=== PATIENT | female | born 1990 | race Caucasian/White ===

== ENCOUNTER 2020-02-04 15:27 | Outpatient (RCR) | payer OTHER, SELFPAY | END 2020-05-04 23:59 | disposition home or self-care (01) | LOC: ANHLAB 15:27 | PROVIDERS: PCP Internal Medicine; Visit Provider Obstetrics & Gynecology Gynecology | DX: O26.851 Spotting complicating pregnancy, first trimester (principal); Z3A.00 Weeks of gestation of pregnancy not specified | CPT/HCPCS: 36415; 84702; 85461 ==

== ENCOUNTER → 2020-02-07 14:04 | Outpatient (CLI) | payer OTHER, SELFPAY ==
--- NOTE | ~2020-02-07 | US_ITS ---
EXAMINATION: US OB transvaginal DATE: 02/07/2020 14:42 INDICATION: First trimester dating, spotting TECHNIQUE: Real-time pelvic transabdominal and transvaginal ultrasound was performed. COMPARISON: None. FINDINGS: The uterus measures 9.6 x 5.9 x 7.7 cm. There is an intrauterine gestational sac. A small subchorionic hemorrhage seen at the anterior/superior aspect of the gestational sac. A yolk sac is id entified. heart motion is identified measuring 177 beats per minute (bpm) by M-mode Doppler. Th e crown rump length measures 2.7 cm , which correlates with an estimated gestational age of 9 w eeks and 4 day(s) (+/-) 6 day(s). The right ovary measures 3.5 x 3.2 x 3.0 cm. The left ovary measures 2.3 x 1.6 x 2.3 cm. There is nor mal vascular flow in the ovaries. There is no free fluid in the pelvis. IMPRESSION: 1. Live intrauterine with an estimated gestational age of 9 weeks and 4 day(s) (+/-) 6 day( s) and an estimated delivery date of 09/07/2020. 2. Small subchronic hemorrhage. Reviewed, dictated and finalized at location A. IMPRESSION: 1. Live intrauterine with an estimated gestational age of 9 weeks and 4 day(s) (+/-) 6 day(s) and an estimated delivery date of 09/07/2020. 2. Small subchronic hemorrhage.
== END ==
PROVIDERS: PCP Internal Medicine; Visit Provider Obstetrics & Gynecology Gynecology
DX: O46.91 Antepartum hemorrhage, unspecified, first trimester (principal); Z3A.09 9 weeks gestation of pregnancy
CPT/HCPCS: 76817

== ENCOUNTER → 2020-02-21 12:40 | Outpatient (CLI) | payer OTHER, SELFPAY ==
--- NOTE | ~2020-02-21 | US_ITS ---
EXAMINATION: US OB limited DATE: 02/21/2020 13:04 INDICATION: Subchorionic hematoma TECHNIQUE: Real-time ultrasound of the pelvis was performed using transabdominal probe. The interpret ing radiologist was not present for the study. COMPARISON: 02/07/2020 FINDINGS: There is a single living fetus with heart rate of 170 beats per minute (bpm). No evident subcho rionic hematoma. IMPRESSION: 1. Single living fetus with heart rate of 70 bpm. 2. No evident subchorionic hematoma however sensitivity is lower with transabdominal than with prior transvaginal imaging. Reviewed, dictated and finalized at location A. IMPRESSION: 1. Single living fetus with heart rate of 70 bpm. 2. No evident subchorionic hematoma however sensitivity is lower with transabdo mare than with prior transvaginal imaging.
== END ==
PROVIDERS: Visit Provider Obstetrics & Gynecology Gynecology
DX: O36.8910 Maternal care for other specified fetal problems, first trimester, not applicable or unspecified (principal); Z3A.00 Weeks of gestation of pregnancy not specified
CPT/HCPCS: 76815

== ENCOUNTER 2020-03-09 07:58 | Outpatient (CLI) | payer OTHER, SELFPAY ==
[2020-03-09 08:12] LABS: Basophils Absolute Auto 0.03 K/mm3 (0.00-0.10); Basophils Percent Auto 0.3 % (0.0-1.0); Eosinophils Absolute Auto 0.07 K/mm3 (0.02-0.50); Eosinophils Percent Auto 0.7 % (1.0-6.0); Hematocrit 39.4 % (35.0-49.0); Hemoglobin 13.2 g/dL (12.0-15.0); Immature Granulocyte Absolute 0.04 K/mm3 (0.00-0.00); Immature Granulocyte Percent A 0.4 % (0.0-0.0); Lymphocytes Absolute Auto 1.61 K/mm3 (1.10-4.50); Mean Corpuscular HGB Conc 33.5 g/dL (32.0-36.0); Mean Corpuscular Hemoglobin 28.1 pg (27.0-31.0); Mean Platelet Volume 10.2 fl (9.2-11.8); Monocytes Absolute Auto 0.43 K/mm3 (0.10-0.90); Monocytes Percent Auto 4.6 % (2.0-11.0); Neutrophils Absolute Auto 7.3 K/mm3 (1.7-7.2); Platelet Count Result 227 K/mm3 (150-420); Red Blood Count 4.69 M/mm3 (4.20-5.40); Red Cell Distribution Width 12.3 % (11.6-14.4); White Blood Count 9.5 K/mm3 (4.8-10.8)
[2020-03-09 08:20] LABS: Hemoglobin A1C 5.9 % (<5.7)
[2020-03-09 09:09] LABS: HIV 1 P24 AG Negative (Negative); HIV 1/2 AB Negative (Negative)
[2020-03-13 16:49] LABS: RPR Screen Non-Reactive (Non-Reactive)
[2020-03-13 20:27] LABS: Vitamin D 25 Hydroxy 38 ng/mL (30-100)
[2020-03-14 08:08] LABS: Rubella IgG Antibody <0.90 Index (>=1.00)
[2020-03-14 17:17] LABS: Hepatitis B Surface Antigen Nonreactive (Nonreactive)
== END 2020-03-09 07:59 | disposition home or self-care (01) ==
LOC: CHSLAB 08:01
PROVIDERS: Visit Provider Obstetrics & Gynecology Gynecology
DX: Z36.9 Encounter for antenatal screening, unspecified (principal)
CPT/HCPCS: 36415; 82306; 83036; 85025; 86592; 86703; 86762; 86850; 86900; 86901

== ENCOUNTER 2020-03-29 11:12 | Outpatient (CLI) | payer OTHER, SELFPAY ==
[2020-03-29 11:22] LABS: Basophils Absolute Auto 0.02 K/mm3 (0.00-0.10); Basophils Percent Auto 0.1 % (0.0-1.0); Eosinophils Absolute Auto 0.03 K/mm3 (0.02-0.50); Eosinophils Percent Auto 0.2 % (1.0-6.0); Hematocrit 38.5 % (35.0-49.0); Hemoglobin 12.7 g/dL (12.0-15.0); Immature Granulocyte Absolute 0.06 K/mm3 (0.00-0.00); Immature Granulocyte Percent A 0.4 % (0.0-0.0); Lymphocytes Absolute Auto 1.58 K/mm3 (1.10-4.50); Lymphocytes Percent Auto 11.8 % (18.0-42.0); Mean Platelet Volume 10.7 fl (9.2-11.8); Monocytes Absolute Auto 0.37 K/mm3 (0.10-0.90); Monocytes Percent Auto 2.8 % (2.0-11.0); Neutrophils Absolute Auto 11.4 K/mm3 (1.7-7.2); Neutrophils Percent Auto 84.7 % (50.0-70.0); Platelet Count Result 240 K/mm3 (150-420); Red Blood Count 4.53 M/mm3 (4.20-5.40); Red Cell Distribution Width 12.4 % (11.6-14.4); White Blood Count 13.4 K/mm3 (4.8-10.8)
[2020-03-29 11:59] LABS: Alanine Aminotransferase 15 U/L (14-59); Albumin Level 2.9 g/dL (3.4-5.0); Aspartate Amino Transferase 13 U/L (15-37); Bilirubin Direct 0.1 mg/dL (0-0.2); Bilirubin,Total 0.3 mg/dL (0.00-1.00); Total Protein 6.7 g/dL (6.4-8.2)
[2020-03-29 12:00] LABS: Alkaline Phosphatase 87 U/L (46-116); Amylase 24 U/L (25-115); Lipase 69 U/L (73-393)
== END 2020-03-29 11:13 | disposition home or self-care (01) ==
LOC: CHSLAB 11:13
PROVIDERS: PCP Internal Medicine; Visit Provider Obstetrics & Gynecology Gynecology
DX: K91.5 Postcholecystectomy syndrome (principal)
CPT/HCPCS: 36415; 80076; 82150; 83690; 85025

== ENCOUNTER 2020-04-15 07:46 | Outpatient (CLI) | payer OTHER, SELFPAY ==
[2020-04-17 13:06] LABS: SARS-CoV-2 RNA PCR Negative
== END 2020-04-15 07:47 | disposition home or self-care (01) ==
LOC: CHSLAB 07:48
PROVIDERS: PCP Internal Medicine; Visit Provider Internal Medicine
DX: Z20.828 Contact with and (suspected) exposure to other viral communicable diseases (principal); Z02.1 Encounter for pre-employment examination
CPT/HCPCS: 87635; C9803; U0003

== ENCOUNTER 2020-05-25 12:18 | Outpatient (CLI) | payer OTHER, SELFPAY ==
[2020-05-25 12:39] VITALS: BP 118/53; PULSE 83
[2020-05-25 13:04] LABS: Basophils Percent Auto 0.3 % (0.2-1.2); Eosinophils Absolute Auto 0.1 K/mm3 (0-0.3); Eosinophils Percent Auto 0.4 % (0-4.4); Hematocrit 36.6 % (37.0-47.0); Hemoglobin 12.2 g/dL (12.0-15.0); Immature Granulocyte Absolute 0.09 K/mm3 (0.00-0.031); Immature Granulocyte Percent A 0.8 % (0-0.5); Lymphocytes Percent Auto 16.1 % (18.3-44.2); Mean Corpuscular HGB Conc 33.3 g/dl (32-36); Mean Corpuscular Hemoglobin 27.7 pg (26-34); Mean Corpuscular Volume 83.2 fl (80-100); Mean Platelet Volume 10.8 fl (7.4-10.4); Monocytes Absolute Auto 0.5 K/mm3 (0.1-0.6); Monocytes Percent Auto 4.1 % (2.6-8.5); Neutrophils Absolute Auto 9.3 K/mm3 (1.3-6.7); Neutrophils Percent Auto 78.3 % (45.5-73.1); Platelet Count Result 216 k/mm3 (150-375); Red Cell Distribution Width 13.5 % (11.5-14.5); White Blood Count 11.8 K/mm3 (4.5-10.0)
[2020-05-25 13:17] VITALS: BP 104/72; PULSE 93
[2020-05-25 13:23] LABS: Alanine Aminotransferase 10 U/L (4-35); Albumin Level 3.4 g/dL (3.5-5.1); Alkaline Phosphatase 100 U/L (38-126); Anion Gap 7 mmol/L (8-16); Aspartate Amino Transferase 15 U/L (14-36); Bilirubin,Total 0.2 mg/dL (0.2-1.3); Blood Urea Nitrogen 7 mg/dL (7-17); Calcium 9.1 mg/dL (8.4-10.2); Carbon Dioxide 26 mmol/L (22-30); Chloride 103 mmol/L (98-107); Estimated Glomerular Filt Rate > 60; Glucose 96 mg/dL (65-105); Sodium 136 mmol/L (137-145); Uric Acid 3.5 mg/dL (2.5-7.5)
[2020-05-25 13:45] LABS: Add Urine Microscopic? YES; Appearance Urine Cloudy (Clear); Bacteria Urine Trace /hpf; Bilirubin Urine Negative (Negative); Blood Urine Negative (Negative); Color Urine Yellow (Yellow); Glucose Urine UA Negative (Negative); Ketones Urine Negative (Negative); Leukocyte Esterase Ur 1+ LEU/UL (NEGATIVE); Mucus Urine Rare /lpf; Nitrate Urine Negative (Negative); Protein Urine Negative (Negative); RBC Urine 0-2 /hpf (0-2); Specific Grav Ur 1.024 (1.001-1.035); Squamous Epithelial Cell Urine Many /hpf (Few); Transitional Epi Cells Urine Rare /hpf (None Seen); Urobilinogen Urine Negative mg/dL (<2.0)
[2020-05-25 13:46] LABS: Creatinine Urine 113.9 mg/dL; Total Protein Urine Random 8 mg/dL
[2020-05-25 13:56] VITALS: BP 113/62; PULSE 87
== END 2020-05-25 14:10 | disposition home or self-care (01) ==
LOC: ANHOBOP 12:22 → ANHOBPP 12:23
PROVIDERS: PCP Internal Medicine; Visit Provider Obstetrics & Gynecology Gynecology
DX: O13.9 Gestational [pregnancy-induced] hypertension without significant proteinuria, unspecified trimester (principal); Z3A.00 Weeks of gestation of pregnancy not specified
CPT/HCPCS: 36415; 80053; 81001; 82570; 84156; 84550; 85025; 87086; 87088; 87147; 99199

== ENCOUNTER 2020-05-26 16:48 | Outpatient (CLI) | payer OTHER, SELFPAY ==
[2020-05-26 16:56] VITALS: BMI 49.0
[2020-05-26 17:09] LABS: Collection Time Urine 24 HOURS
[2020-05-26 17:14] LABS: Total Volume 24 Hour Urine 1600 ml
[2020-05-26 17:15] LABS: Patient Weight 276 Lbs
[2020-05-26 17:19] LABS: Creatinine Clearance Urine 160.2 ml/min (75-125); Creatinine Urine 92.1 mg/dL; Total Protein Urine 24 Hr 208 MG/DAY (28-141); Total Protein Urine Random 13 mg/dL
== END 2020-05-26 16:49 | disposition home or self-care (01) ==
LOC: ANHOBOP 16:49
PROVIDERS: PCP Internal Medicine; Visit Provider Obstetrics & Gynecology Gynecology
DX: Z36.9 Encounter for antenatal screening, unspecified (principal)
CPT/HCPCS: 81050; 82575; 84156

== ENCOUNTER 2020-06-15 15:23 | Outpatient (CLI) | payer OTHER, SELFPAY ==
[2020-06-15 15:32] LABS: Hemoglobin 11.6 g/dL (12.0-15.0)
[2020-06-15 16:37] LABS: Free T4 Free Thyroxine 1.07 ng/dL (0.76-1.46); Thyroid Stimulating Hormone 1.52 uIU/mL (0.36-3.74)
[2020-06-15 16:39] LABS: HIV 1 P24 AG Negative (Negative); HIV 1/2 AB Negative (Negative)
[2020-06-20 09:40] LABS: Vitamin D 25 Hydroxy 57 ng/mL (30-100)
== END 2020-06-15 15:24 | disposition home or self-care (01) ==
LOC: CHSLAB 15:25
PROVIDERS: PCP Internal Medicine; Visit Provider Obstetrics & Gynecology Gynecology
DX: Z34.03 Encounter for supervision of normal first pregnancy, third trimester (principal)
CPT/HCPCS: 36415; 82306; 83036; 84439; 84443; 85014; 85018; 86703

== ENCOUNTER 2020-06-27 16:47 | Outpatient (CLI) | payer OTHER, SELFPAY ==
[2020-06-27] VITALS (7 sets, daily range): BP systolic 105–114; BP diastolic 37–60; PULSE 76–92
--- NOTE | 2020-06-27 17:52 | PC.NURSE ---
Dr Toussaint notified of adm c/o elevated bp and dizziness today. Orders for baseline labs if patient has not had them drawn yet. Informed of normal BP's here. Ok to dc home.
== END 2020-06-27 18:30 | disposition home or self-care (01) ==
LOC: ANHOBOP 16:54 → ANHOBPP 16:55
PROVIDERS: PCP Internal Medicine; Visit Provider Obstetrics & Gynecology Gynecology
DX: O13.9 Gestational [pregnancy-induced] hypertension without significant proteinuria, unspecified trimester (principal); Z3A.00 Weeks of gestation of pregnancy not specified
CPT/HCPCS: 59025; 99199

== ENCOUNTER 2020-06-30 15:36 | Outpatient (CLI) | payer OTHER, SELFPAY ==
[2020-06-30 16:01] LABS: Hemoglobin 11.9 g/dL (12.0-15.0); Mean Corpuscular HGB Conc 33.1 g/dl (32-36); Mean Corpuscular Hemoglobin 27.4 pg (26-34); Mean Corpuscular Volume 82.8 fl (80-100); Mean Platelet Volume 10.2 fl (7.4-10.4); Platelet Count Result 195 k/mm3 (150-375); Red Blood Count 4.35 M/mm3 (4.2-5.4); Red Cell Distribution Width 13.6 % (11.5-14.5); White Blood Count 12.5 K/mm3 (4.5-10.0)
[2020-06-30 16:14] LABS: Alanine Aminotransferase 11 U/L (4-35); Albumin Level 3.3 g/dL (3.5-5.1); Alkaline Phosphatase 105 U/L (38-126); Anion Gap 7 mmol/L (8-16); Aspartate Amino Transferase 15 U/L (14-36); Bilirubin,Total 0.2 mg/dL (0.2-1.3); Blood Urea Nitrogen 10 mg/dL (7-17); Calcium 9.1 mg/dL (8.4-10.2); Carbon Dioxide 25 mmol/L (22-30); Chloride 103 mmol/L (98-107); Estimated Glomerular Filt Rate > 60; Glucose 123 mg/dL (65-105); Lactate Dehydrogenase 297 U/L (313-618); Potassium 3.5 mmol/L (3.4-5.0); Sodium 135 mmol/L (137-145)
== END 2020-06-30 15:37 | disposition home or self-care (01) ==
LOC: ANHLAB 15:38
PROVIDERS: PCP Internal Medicine; Visit Provider Obstetrics & Gynecology Gynecology
DX: Z34.02 Encounter for supervision of normal first pregnancy, second trimester (principal); Z3A.00 Weeks of gestation of pregnancy not specified
CPT/HCPCS: 36415; 80053; 83615; 84550; 85027

== ENCOUNTER 2020-07-02 08:10 | Outpatient (NON) | payer OTHER, SELFPAY ==
[2020-07-02 08:34] VITALS: BMI 52.3
[2020-07-02 09:30] LABS: Collection Time Urine 24 HOURS
[2020-07-02 09:37] LABS: Creatinine Urine 111.8 mg/dL; Patient Weight 295 Lbs; Total Protein Urine Random 10 mg/dL
[2020-07-02 09:50] LABS: Creatinine Clearance Urine 165.4 ml/min (75-125); Total Protein Urine 24 Hr 140 MG/DAY (28-141); Total Volume 24 Hour Urine 1400 ml
== END 2020-07-02 08:11 ==
LOC: ANHOBOP 08:19
PROVIDERS: PCP Internal Medicine; Visit Provider Obstetrics & Gynecology
DX: O16.2 Unspecified maternal hypertension, second trimester (principal); Z3A.22 22 weeks gestation of pregnancy
CPT/HCPCS: 81050; 82575; 84156

== ENCOUNTER 2020-07-14 09:56 | Outpatient (RCR) | payer OTHER, SELFPAY ==
[2020-07-14 10:41] VITALS: BP 131/69; PULSE 85
== END 2020-08-21 07:53 | disposition home or self-care (01) ==
LOC: ANHOBOP 09:56
PROVIDERS: PCP Internal Medicine; Visit Provider Obstetrics & Gynecology Gynecology
DX: O16.3 Unspecified maternal hypertension, third trimester (principal); Z3A.31 31 weeks gestation of pregnancy
CPT/HCPCS: 59025

== ENCOUNTER 2020-08-10 18:30 | Outpatient (NON) | payer OTHER, SELFPAY ==
[2020-08-10 18:55] LABS: Hematocrit 36.4 % (37.0-47.0); Hemoglobin 11.9 g/dL (12.0-15.0); Mean Corpuscular HGB Conc 32.7 g/dl (32-36); Mean Corpuscular Hemoglobin 26.4 pg (26-34); Mean Corpuscular Volume 80.7 fl (80-100); Mean Platelet Volume 11.4 fl (7.4-10.4); Platelet Count Result 183 k/mm3 (150-375); Red Blood Count 4.51 M/mm3 (4.2-5.4); Red Cell Distribution Width 14.3 % (11.5-14.5); White Blood Count 11.9 K/mm3 (4.5-10.0)
[2020-08-10 19:08] LABS: Alanine Aminotransferase 15 U/L (4-35); Albumin Level 3.3 g/dL (3.5-5.1); Alkaline Phosphatase 137 U/L (38-126); Anion Gap 6 mmol/L (8-16); Aspartate Amino Transferase 22 U/L (14-36); Bilirubin,Total 0.2 mg/dL (0.2-1.3); Blood Urea Nitrogen 12 mg/dL (7-17); Calcium 9.2 mg/dL (8.4-10.2); Carbon Dioxide 23 mmol/L (22-30); Chloride 105 mmol/L (98-107); Estimated Glomerular Filt Rate > 60; Glucose 113 mg/dL (65-105); Potassium 4.2 mmol/L (3.4-5.0); Sodium 134 mmol/L (137-145); Uric Acid 5.7 mg/dL (2.5-7.5)
[2020-08-10 20:18] LABS: Total Volume 24 Hour Urine 1400 ml
[2020-08-10 20:23] LABS: Collection Time Urine 24 HOURS
[2020-08-10 20:25] LABS: Patient Weight 333 Lbs; Total Volume 24 Hour Urine 1400 ml
[2020-08-10 20:30] LABS: Creatinine 24 Hour Urine 1.6 gm/24 (0.8-1.8); Creatinine Urine 115.1 mg/dL
[2020-08-10 20:36] LABS: Creatinine Clearance Urine 155.1 ml/min (75-125); Creatinine Urine 116.8 mg/dL; Total Protein Urine 24 Hr 280 MG/DAY (28-141); Total Protein Urine Random 20 mg/dL
== END 2020-08-10 18:31 ==
PROVIDERS: PCP Internal Medicine; Visit Provider Obstetrics & Gynecology
DX: O13.9 Gestational [pregnancy-induced] hypertension without significant proteinuria, unspecified trimester (principal); Z3A.00 Weeks of gestation of pregnancy not specified
CPT/HCPCS: 36415; 80053; 81050; 82570; 82575; 84156; 84550; 85027

== ENCOUNTER 2020-08-13 23:11 | Observation (INO) | payer OTHER, SELFPAY ==
[2020-08-14] VITALS (33 sets, daily range): BP systolic 138–173; BP diastolic 66–91; PULSE 84–96; BMI 59.1
[2020-08-14 00:13] LABS: Basophils Percent Auto 0.2 % (0.2-1.2); Eosinophils Absolute Auto 0.1 K/mm3 (0-0.3); Eosinophils Percent Auto 0.5 % (0-4.4); Hematocrit 37.1 % (37.0-47.0); Hemoglobin 12.1 g/dL (12.0-15.0); Immature Granulocyte Absolute 0.08 K/mm3 (0.00-0.031); Immature Granulocyte Percent A 0.7 % (0-0.5); Lymphocytes Absolute Auto 2.01 K/mm3 (0.9-3.2); Lymphocytes Percent Auto 17.2 % (18.3-44.2); Mean Corpuscular HGB Conc 32.6 g/dl (32-36); Mean Corpuscular Hemoglobin 26.6 pg (26-34); Mean Corpuscular Volume 81.5 fl (80-100); Mean Platelet Volume 11.3 fl (7.4-10.4); Monocytes Absolute Auto 0.8 K/mm3 (0.1-0.6); Monocytes Percent Auto 6.7 % (2.6-8.5); Neutrophils Absolute Auto 8.8 K/mm3 (1.3-6.7); Neutrophils Percent Auto 74.7 % (45.5-73.1); Platelet Count Result 185 k/mm3 (150-375); Red Blood Count 4.55 M/mm3 (4.2-5.4); Red Cell Distribution Width 14.5 % (11.5-14.5); White Blood Count 11.7 K/mm3 (4.5-10.0)
[2020-08-14 00:15] LABS: Add Urine Microscopic? YES; Appearance Urine Cloudy (Clear); Bacteria Urine Trace /hpf; Bilirubin Urine Negative (Negative); Blood Urine Negative (Negative); Calcium Oxalate Crystals Urine Many /hpf; Color Urine Yellow (Yellow); Glucose Urine UA Negative (Negative); Ketones Urine Trace mg/dL (Negative); Leukocyte Esterase Ur 3+ LEU/UL (NEGATIVE); Mucus Urine Moderate /lpf; Nitrate Urine Negative (Negative); Protein Urine 3+ mg/dL (Negative); Specific Grav Ur 1.037 (1.001-1.035); Squamous Epithelial Cell Urine Many /hpf (Few); WBC Urine >75 /hpf (0-3)
[2020-08-14 00:26] LABS: Alanine Aminotransferase 17 U/L (4-35); Albumin Level 3.2 g/dL (3.5-5.1); Alkaline Phosphatase 147 U/L (38-126); Anion Gap 10 mmol/L (8-16); Aspartate Amino Transferase 24 U/L (14-36); Bilirubin,Total 0.3 mg/dL (0.2-1.3); Blood Urea Nitrogen 16 mg/dL (7-17); Calcium 9.5 mg/dL (8.4-10.2); Carbon Dioxide 21 mmol/L (22-30); Chloride 105 mmol/L (98-107); Estimated Glomerular Filt Rate > 60; Glucose 111 mg/dL (65-105); Potassium 3.8 mmol/L (3.4-5.0); Sodium 136 mmol/L (137-145); Uric Acid 5.8 mg/dL (2.5-7.5)
[2020-08-14 00:31] LABS: Total Protein Urine Random 112 mg/dL
[2020-08-14] MEDS: LABETALOL HCL 100 MG TABLET PO ×2 (01:32→03:37)
[2020-08-14 01:49] LABS: Creatinine Urine 495.8 mg/dL; Ur Ttl Prot Creatinine Ratio 0.23 mg/mg (0-0.20)
[2020-08-14] MEDS: ACETAMINOPHEN 500 MG TABLET 1000 MG PO (03:41)
[2020-08-14 07:08] LABS: Add Urine Microscopic? YES; Appearance Urine Clear (Clear); Bacteria Urine Trace /hpf; Bilirubin Urine Negative (Negative); Blood Urine Negative (Negative); Calcium Oxalate Crystals Urine Present /hpf; Color Urine Yellow (Yellow); Glucose Urine UA Negative (Negative); Ketones Urine Trace mg/dL (Negative); Leukocyte Esterase Ur 2+ LEU/UL (NEGATIVE); Mucus Urine Rare /lpf; Nitrate Urine Negative (Negative); Protein Urine 2+ mg/dL (Negative); RBC Urine 0-2 /hpf (0-2); Squamous Epithelial Cell Urine Many /hpf (Few); Urobilinogen Urine Negative mg/dL (<2.0); WBC Urine 21-30 /hpf (0-3)
[2020-08-14 07:16] LABS: Specific Grav Ur 1.034 (1.001-1.035)
--- NOTE | 2020-08-14 08:34 | PM.OBTRLD ---
OB - Triage/Final Diagnosis Visit Information Date of evaluation: 08/14/20 Comments/Additional reasons for admission: Patient is here with elevated BP and headache. Last week 24 hour urine 280 mg. Today +3 protein. No headache or PIH sx now. BP elevated on admit and given 2 doses labetalol. Now 140's/80's. Good FM. Evaluation Laboratory results: Laboratory Tests 08/13/20 08/13/20 08/13/20 23:55 23:55 23:55 WBC 11.7 H RBC 4.55 Hgb 12.1 Hct 37.1 MCV 81.5 MCH 26.6 MCHC 32.6 RDW 14.5 Plt Count 185 MPV 11.3 H Immature Gran % (Auto) 0.7 H Neut % (Auto) 74.7 H Lymph % (Auto) 17.2 L [place] % (Auto) 6.7 Eos % (Auto) 0.5 Baso % (Auto) 0.2 Lymph # (Auto) 2.01 [place] # (Auto) 0.8 H Eos # (Auto) 0.1 Baso # (Auto) 0.0 Abs Immat Gran (auto) 0.08 H Absolute Neuts (auto) 8.8 H Absolute Nucleated RBC 0.0 Nucleated RBC % 0.0 Sodium 136 L Potassium 3.8 Chloride 105 Carbon Dioxide 21 L Anion Gap 10 BUN 16 Creatinine 0.80 Estim Creat Clear Calc Not Reportable Estimated GFR > 60 Glucose 111 H Uric Acid 5.8 Calcium 9.5 Total Bilirubin 0.3 AST 24 ALT 17 Alkaline Phosphatase 147 H Total Protein 7.0 Albumin 3.2 L Urine Color Yellow Urine Appearance Cloudy H Urine pH 5.0 Ur Specific [place] 1.037 H Urine Protein 3+ H Urine Glucose (UA) Negative Urine Ketones Trace Ur Blood (Man) Negative Urine Nitrate Negative Urine Bilirubin Negative Urine Urobilinogen 2.0 H Ur Leukocyte Esterase 3+ H Urine RBC 3-5 H Urine WBC >75 H Ur Squamous Epith Cells Many H Calcium Oxalate Crystal Many Urine Bacteria Trace Urine Mucus Moderate H U Random Total Protein Urine Creatinine Protein/Creat Ratio 2 08/13/20 08/14/20 23:58 06:35 WBC RBC Hgb Hct MCV MCH MCHC RDW Plt Count MPV Immature Gran % (Auto) Neut % (Auto) Lymph % (Auto) [place] % (Auto) Eos % (Auto) Baso % (Auto) Lymph # (Auto) [place] # (Auto) Eos # (Auto) Baso # (Auto) Abs Immat Gran (auto) Absolute Neuts (auto) Absolute Nucleated RBC Nucleated RBC % Sodium Potassium Chloride Carbon Dioxide Anion Gap BUN Creatinine Estim Creat Clear Calc Estimated GFR Glucose Uric Acid Calcium Total Bilirubin AST ALT Alkaline Phosphatase Total Protein Albumin Urine Color Yellow Urine Appearance Clear Urine pH 5.0 Ur Specific [place] 1.034 Urine Protein 2+ H Urine Glucose (UA) Negative Urine Ketones Trace Ur Blood (Man) Negative Urine Nitrate Negative Urine Bilirubin Negative Urine Urobilinogen Negative Ur Leukocyte Esterase 2+ H Urine RBC 0-2 Urine WBC 21-30 H Ur Squamous Epith Cells Many H Calcium Oxalate Crystal Present Urine Bacteria Trace Urine Mucus Rare U Random Total Protein 112 Urine Creatinine 495.8 Protein/Creat Ratio 2 0.23 H Vital signs: Vital Signs - 24 hr 08/14/20 00:01 08/14/20 00:16 08/14/20 00:31 Pulse Rate 93 91 92 Blood Pressure 141/66 H 150/81 H 158/79 H 08/14/20 00:46 08/14/20 01:00 08/14/20 01:15 Pulse Rate 84 88 89 Blood Pressure 153/75 H 155/74 H 152/75 H 08/14/20 01:32 08/14/20 01:46 08/14/20 02:01 Pulse Rate 89 91 90 Blood Pressure 163/88 H 171/75 H 08/14/20 02:16 08/14/20 02:31 08/14/20 02:46 Pulse Rate 91 88 86 Blood Pressure 173/84 H 163/89 H 160/82 H 08/14/20 03:01 08/14/20 03:16 08/14/20 03:31 Pulse Rate 96 96 87 Blood Pressure 159/81 H 163/72 H 162/91 H 08/14/20 03:37 08/14/20 03:46 08/14/20 04:01 Pulse Rate 88 88 91 Blood Pressure 162/72 H 161/70 H 08/14/20 04:16 08/14/20 04:31 08/14/20 04:45 Pulse Rate 91 93 96 Blood Pressure 162/75 H 158/72 H 161/70 H 08/14/20 05:01 08/14/20 05:16 08/14/20 05:31 Pulse Rate 94 94 91 Blood Pressure 159/72 H 152/79 H 158/66 H 08/14/20 06:
== END 2020-08-14 08:35 | disposition home or self-care (01) ==
PROVIDERS: Obstetrics & Gynecology; Admitting Provider Obstetrics & Gynecology Gynecology; PCP Internal Medicine; Visit Provider Obstetrics & Gynecology Gynecology
DX: O13.9 Gestational [pregnancy-induced] hypertension without significant proteinuria, unspecified trimester (principal); Z3A.00 Weeks of gestation of pregnancy not specified
CPT/HCPCS: 36415; 80053; 81001; 82570; 84112; 84156; 84550; 85025; 87077; 87086; 87088; A9270; G0378; G0379

== ENCOUNTER 2020-08-15 09:09 | Outpatient (CLI) | payer OTHER, SELFPAY ==
[2020-08-15 09:17] VITALS: BMI 59.0
[2020-08-15 09:32] LABS: Collection Time Urine 24 HOURS
[2020-08-15 09:53] LABS: Creatinine Urine 142.5 mg/dL; Patient Weight 333 Lbs; Total Protein Urine Random 36 mg/dL
[2020-08-15 10:10] LABS: Creatinine Clearance Urine 116.2 ml/min (75-125); Total Protein Urine 24 Hr 468 MG/DAY (28-141); Total Volume 24 Hour Urine 1300 ml
== END 2020-08-15 09:10 | disposition home or self-care (01) ==
LOC: ANHOBOP 09:14
PROVIDERS: PCP Obstetrics & Gynecology Gynecology; Visit Provider Obstetrics & Gynecology Gynecology
DX: O13.9 Gestational [pregnancy-induced] hypertension without significant proteinuria, unspecified trimester (principal); Z3A.00 Weeks of gestation of pregnancy not specified
CPT/HCPCS: 81050; 82575; 84156

== ENCOUNTER 2020-08-17 23:50 | Inpatient (IN) | payer OTHER, SELFPAY ==
[2020-08-18] VITALS (216 sets, daily range): BP systolic 116–183; BP diastolic 51–116; PULSE 61–122; RESP 18; TEMP 36.4–36.9; O2SAT 79–100; BMI 59.7
[2020-08-18] MEDS: NIFEdipine 10 MG CAPSULE PO ×3 (01:49→16:06)
[2020-08-18 02:11] LABS: Basophils Percent Auto 0.2 % (0.2-1.2); Eosinophils Absolute Auto 0.1 K/mm3 (0-0.3); Eosinophils Percent Auto 0.6 % (0-4.4); Hematocrit 35.2 % (37.0-47.0); Hemoglobin 11.3 g/dL (12.0-15.0); Immature Granulocyte Absolute 0.12 K/mm3 (0.00-0.031); Lymphocytes Absolute Auto 2.02 K/mm3 (0.9-3.2); Lymphocytes Percent Auto 16.2 % (18.3-44.2); Mean Corpuscular HGB Conc 32.1 g/dl (32-36); Mean Corpuscular Hemoglobin 26.6 pg (26-34); Mean Corpuscular Volume 82.8 fl (80-100); Mean Platelet Volume 12.3 fl (7.4-10.4); Monocytes Absolute Auto 0.7 K/mm3 (0.1-0.6); Monocytes Percent Auto 5.6 % (2.6-8.5); Neutrophils Absolute Auto 9.5 K/mm3 (1.3-6.7); Neutrophils Percent Auto 76.4 % (45.5-73.1); Platelet Count Result 164 k/mm3 (150-375); Red Blood Count 4.25 M/mm3 (4.2-5.4); Red Cell Distribution Width 14.8 % (11.5-14.5); White Blood Count 12.5 K/mm3 (4.5-10.0)
[2020-08-18 02:14] LABS: Add Urine Microscopic? YES; Appearance Urine Clear (Clear); Bacteria Urine Trace /hpf; Bilirubin Urine Negative (Negative); Blood Urine Negative (Negative); Color Urine Yellow (Yellow); Glucose Urine UA Negative (Negative); Ketones Urine Negative (Negative); Leukocyte Esterase Ur 2+ LEU/UL (NEGATIVE); Mucus Urine Rare /lpf; Nitrate Urine Negative (Negative); Protein Urine 2+ mg/dL (Negative); Specific Grav Ur 1.028 (1.001-1.035); Squamous Epithelial Cell Urine Many /hpf (Few); Urobilinogen Urine Negative mg/dL (<2.0); WBC Urine 21-30 /hpf (0-3)
[2020-08-18 02:24] LABS: Alanine Aminotransferase 19 U/L (4-35); Albumin Level 3.1 g/dL (3.5-5.1); Alkaline Phosphatase 134 U/L (38-126); Anion Gap 5 mmol/L (8-16); Aspartate Amino Transferase 27 U/L (14-36); Bilirubin,Total 0.3 mg/dL (0.2-1.3); Blood Urea Nitrogen 13 mg/dL (7-17); Calcium 9.3 mg/dL (8.4-10.2); Carbon Dioxide 24 mmol/L (22-30); Chloride 104 mmol/L (98-107); Estimated Glomerular Filt Rate > 60; Glucose 89 mg/dL (65-105); Potassium 3.9 mmol/L (3.4-5.0); Sodium 133 mmol/L (137-145); Uric Acid 5.1 mg/dL (2.5-7.5)
[2020-08-18] MEDS: LABETALOL HCL 100 MG TABLET 200 MG PO (06:50)
[2020-08-18] MEDS: ONDANSETRON INJ 4 MG/2 ML VIAL IV PUSH ×3 (07:42→20:21)
--- NOTE | 2020-08-18 08:30 | WPDANESEPP ---
Anes - Eval Pre Procedure Procedure: Labor epidural Date/Time: 08/18/20 08:30 Surgeon: Elizabet Preop Diagnosis: pain during labor Pre Op Diagnosis: HTN Patient Data Age: 30 Gender: F Height: 1.6 m Weight: 153 kg Last Vital Signs Temp 36.4 C L 08/18/20 01:00 Pulse 85 08/18/20 08:09 BP 155/87 H 08/18/20 08:09 Allergies Allergy/AdvReac Type Severity Reaction Status Date / Time ibuprofen Allergy Swelling Verified 08/14/20 01:26 of Lip/Tongue/Throat Home Medications Medication Instructions Recorded Confirmed Type labetalol 100 mg PO Q12H #12 tablet 08/14/20 08/16/20 Rx PNV cmb#95-ferrous fumarate-FA 1 tablet PO DAILY 08/16/20 08/16/20 History [ Multivitamins] cholecalciferol (vitamin D3) 125 mcg PO DAILY 08/16/20 08/16/20 History [Vitamin D3] cyanocobalamin-cobamamide [B12] 500 SUBLINGUAL 08/16/20 History insulin NPH isoph U-100 human 82 unit SUBCUT HS 08/16/20 08/16/20 History [Humulin N NPH U-100 Insulin] lansoprazole [Prevacid] 15 mg PO DAILY 08/16/20 08/16/20 History levothyroxine 112 mcg PO DAILY 08/16/20 08/16/20 History sertraline 50 mg PO DAILY 08/16/20 08/16/20 History Laboratory Tests 08/18/20 08/18/20 08/18/20 01:34 01:40 01:40 WBC 12.5 K/mm3 H K/mm3 (4.5-10.0) RBC 4.25 M/mm3 M/mm3 (4.2-5.4) Hgb 11.3 g/dL L g/dL (12.0-15.0) Hct 35.2 % L % (37.0-47.0) MCV 82.8 fl fl (80-100) MCH 26.6 pg pg (26-34) MCHC 32.1 g/dl g/dl (32-36) RDW 14.8 % H % (11.5-14.5) Plt Count 164 k/mm3 k/mm3 (150-375) MPV 12.3 fl H fl (7.4-10.4) Immature Gran % (Auto) 1.0 % H % (0-0.5) Neut % (Auto) 76.4 % H % (45.5-73.1) Lymph % (Auto) 16.2 % L % (18.3-44.2) [place] % (Auto) 5.6 % % (2.6-8.5) Eos % (Auto) 0.6 % % (0-4.4) Baso % (Auto) 0.2 % % (0.2-1.2) Lymph # (Auto) 2.02 K/mm3 K/mm3 (0.9-3.2) [place] # (Auto) 0.7 K/mm3 H K/mm3 (0.1-0.6) Eos # (Auto) 0.1 K/mm3 K/mm3 (0-0.3) Baso # (Auto) 0.0 K/mm3 K/mm3 (0.0-0.1) Abs Immat Gran (auto) 0.12 K/mm3 H K/mm3 (0.00-0.031) Absolute Neuts (auto) 9.5 K/mm3 H K/mm3 (1.3-6.7) Absolute Nucleated RBC 0.0 K/mm3 K/mm3 (0.0-0.012) Nucleated RBC % 0.0 % % (0.0-0.2) Sodium 133 mmol/L L mmol/L (137-145) Potassium 3.9 mmol/L mmol/L (3.4-5.0) Chloride 104 mmol/L mmol/L (98-107) Carbon Dioxide 24 mmol/L mmol/L (22-30) Anion Gap 5 mmol/L L mmol/L (8-16) BUN 13 mg/dL mg/dL (7-17) Creatinine 0.60 mg/dL L mg/dL (0.7-1.0) Estim Creat Clear Calc Not Reportable Estimated GFR > 60 (59 - ) Glucose 89 mg/dL mg/dL (65-105) Uric Acid 5.1 mg/dL mg/dL (2.5-7.5) Calcium 9.3 mg/dL mg/dL (8.4-10.2) Total Bilirubin 0.3 mg/dL mg/dL (0.2-1.3) AST 27 U/L U/L (14-36) ALT 19 U/L U/L (4-35) Alkaline Phosphatase 134 U/L H U/L (38-126) Total Protein 6.0 g/dL L g/dL (6.3-8.2) Albumin 3.1 g/dL L g/dL (3.5-5.1) Urine Color Yellow (Yellow) Urine Appearance Clear (Clear) Urine pH 6.0 (5.0-9.0) Ur Specific [place] 1.028 (1.001-1.035) Urine Protein 2+ mg/dL H mg/dL (Negative) Urine Glucose (UA) Negative mg/dL mg/dL (Negative) Urine Ketones Negative mg/dL mg/dL (Negative) Ur Blood (Man) Negative (Negative) Urine Nitrate Negative (Negative) Urine Bilirubin Negative (Negative) Urine Urobilinogen Negative mg/dL mg/dL (<2.0) Ur Leukocyte Esterase 2+ JUAN CARLOS/UL H JUAN CARLOS/UL (NEGATIVE) Urine RBC 3-5 /hpf H /hpf (0-2) Urine WBC 21-30 /hpf H /hpf (0-3)
--- NOTE | 2020-08-18 09:01 | P.HP_ITS ---
Obstetrics - Admit Note Admission Note: record reviewed. No pertinent additions to the history and/or any subsequent changes in the physical findings that are not consistent with the expected course of the were found. Additions to the history and/or subsequent changes in the physical findings follow. None.Here at 37 weeks with preeclampsia and elevated BP. Plan MIL. Cervix /- 2 AROM with clear fluid. FHTs reactive. Start pitocin.
[2020-08-18] MEDS: LACTATED RINGERS 1,000 ML 125 ML IV CONT ×2 (09:15→14:05)
[2020-08-18] MEDS: OXYTOCIN 30 UNITS/NS 500 ML 30 UNITS/500 ML BAG 6 UNITS IV CONT (09:15)
[2020-08-18] MEDS: AMPICILLIN 2 GM/NS 100 ML 2 GM/100 ML BAG IVPB (09:15)
[2020-08-18] MEDS: AMPICILLIN 1 GM/NS 50 ML 1 GM/50 ML BAG IVPB ×3 (13:40→21:26)
[2020-08-18] MEDS: fentaNYL CITRATE INJ (*CRX) 100 MCG/2 ML VIAL 50 MCG IV PUSH (15:20)
--- NOTE | 2020-08-18 15:58 | PC.NURSE ---
PLAN OF CARE DISCUSSED WITH DR MALHOTRA D/T HER B/P'S BEING HIGH FOR SO LONG B/C SHE WAS IN PAIN...CONTINUE TO BE UNSUCCESSFUL WITH EPIDURAL...ORDERS RECEIVED.
[2020-08-18] MEDS: fentaNYL CITRATE INJ (*CRX) 100 MCG/2 ML VIAL IV PUSH (16:09)
[2020-08-18 19:33] LABS: Glucose Point of Care 74 (65-105)
[2020-08-18 19:33] LABS: Glucose Point of Care 81 (65-105)
[2020-08-18 19:33] LABS: Glucose Point of Care 90 (65-105)
[2020-08-18 20:33] LABS: Glucose Point of Care 78 (65-105)
[2020-08-18 21:11] LABS: Rapid Plasma Reagin Non-Reactive (NonReactive)
[2020-08-18 22:32] LABS: Glucose Point of Care 80 (65-105)
[2020-08-19] VITALS (30 sets, daily range): BP systolic 118–165; BP diastolic 63–97; PULSE 78–118; RESP 16–20; TEMP 36.5–37.1; O2SAT 96–100
--- NOTE | 2020-08-19 01:34 | PM.OBPRVD ---
OB - Delivery Note Procedure Delivery date: 08/19/20 Procedure: events: Gestational Diabetes (GDMA2 vs B), Pre-Eclampsia and Labor Induction Intrapartal events: None Delivery monitor: internal FHT and internal uterine Route of delivery: Laceration Description: Vaginal - 2nd Degree (extended to right labia upward from midline perineum) Delivery repair: vicryl (3-0) Specimen: Yes (placenta) Quantitative Blood Loss (ml): 325 Anesthesia type: Epidural Disposition: PACU Baby Date of : 08/19/20 Weeks of gestation at delivery: 37 gender: Male Weight (pounds): 6 Weight (ounces): 15 presentation: vertex Placenta delivery description: Spontaneous cord vessel description: 3 Vessels score one minute: 8 score five minutes: 9
--- NOTE | 2020-08-19 01:39 | PM.OBDSVD ---
DS: Admitting Diagnosis Admitting Diagnosis Admitting Diagnosis: IUP 37 wks Preeclampsia GDMA2 DS: Discharge Diagnosis Discharge Diagnosis (1) 37 weeks gestation of : Code(s): Z3A.37 - 37 weeks gestation of Status: Acute (2) Preeclampsia: Code(s): O14.90 - Unspecified pre-eclampsia, unspecified trimester Status: Acute (3) GDM, class A2: Code(s): O24.419 - Gestational diabetes mellitus in , unspecified control Status: Acute OB - DS: Summary OB Procedures : NST, PIH Mgmt, Ultrasound and Other (diabetic management) OB Procedures Intrapartum: Spontaneous Vag Delivery OB Procedures: : None Peripartum Data Infant Delivery Method: Natural Vaginal Laceration Description: Vaginal - 2nd Degree complications: none Status at Discharge Functional status at discharge: independent ambulation Overall status at discharge: patient is progressing back to baseline Time Spent with Patient Time attestation: Total time spent providing and/or coordinating discharge services: DS: Data Data Completed and Pending Labs on day of discharge: Labs from last 24 hours 08/18/20 08/18/20 08/18/20 22:23 20:22 17:49 WBC RBC Hgb Hct MCV MCH MCHC RDW Plt Count MPV Immature Gran % (Auto) Neut % (Auto) Lymph % (Auto) [place] % (Auto) Eos % (Auto) Baso % (Auto) Lymph # (Auto) [place] # (Auto) Eos # (Auto) Baso # (Auto) Abs Immat Gran (auto) Absolute Neuts (auto) Absolute Nucleated RBC Nucleated RBC % Sodium Potassium Chloride Carbon Dioxide Anion Gap BUN Creatinine Estim Creat Clear Calc Estimated GFR Glucose POC Capillary Glucose 80 78 90 Uric Acid Calcium Total Bilirubin AST ALT Alkaline Phosphatase Total Protein Albumin Urine Color Urine Appearance Urine pH Ur Specific [place] Urine Protein Urine Glucose (UA) Urine Ketones Ur Blood (Man) Urine Nitrate Urine Bilirubin Urine Urobilinogen Ur Leukocyte Esterase Urine RBC Urine WBC Ur Squamous Epith Cells Urine Bacteria Urine Mucus RPR Blood Type Antibody Screen 08/18/20 08/18/20 08/18/20 16:25 16:25 12:22 WBC RBC Hgb Hct MCV MCH MCHC RDW Plt Count MPV Immature Gran % (Auto) Neut % (Auto) Lymph % (Auto) [place] % (Auto) Eos % (Auto) Baso % (Auto) Lymph # (Auto) [place] # (Auto) Eos # (Auto) Baso # (Auto) Abs Immat Gran (auto) Absolute Neuts (auto) Absolute Nucleated RBC Nucleated RBC % Sodium Potassium Chloride Carbon Dioxide Anion Gap BUN Creatinine Estim Creat Clear Calc Estimated GFR Glucose POC Capillary Glucose 81 Uric Acid Calcium Total Bilirubin AST ALT Alkaline Phosphatase Total Protein Albumin Urine Color Urine Appearance Urine pH Ur Specific [place] Urine Protein Urine Glucose (UA) Urine Ketones Ur Blood (Man) Urine Nitrate Urine Bilirubin Urine Urobilinogen Ur Leukocyte Esterase Urine RBC Urine WBC Ur Squamous Epith Cells Urine Bacteria Urine Mucus RPR Non-reactive Blood Type B Positive Antibody Screen Negative 08/18/20 08/18/20 08/18/20 07:37 01:40 01:40 WBC 12.5 H RBC 4.25 Hgb 11.3 L Hct 35.2 L MCV 82.8 MCH 26.6 MCHC 32.1 RDW 14.8 H Plt Count 164 MPV 12.3 H Immature Gran % (Auto) 1.0 H Neut % (Auto) 76.4 H Lymph % (Auto) 16.2 L [place] % (Auto) 5.6 Eos % (Auto) 0.6 Baso % (Auto) 0.2 Lymph # (Auto) 2.02 [place] # (Auto) 0.7 H Eos # (Auto) 0.1 Baso # (Auto) 0.0 Abs Immat Gran (auto) 0.12 H Absolute Neuts (auto) 9.5 H Absolute Nucleated RBC 0.0 Nucleated RBC % 0.0 Sodium 133
[2020-08-19 01:52] LABS: Glucose Point of Care 102 (65-105)
[2020-08-19 01:52] LABS: Glucose Point of Care 90 (65-105)
[2020-08-19] MEDS: NIFEdipine 10 MG CAPSULE PO (02:14)
[2020-08-19] MEDS: WITCH HAZEL 40 PADS 1 PAD TOPICAL (03:27)
[2020-08-19] MEDS: BENZOCAINE 20% AER SPR (*SP) 56 GM CAN 1 SPRAY TOPICAL (03:27)
[2020-08-19 04:07] LABS: Glucose Point of Care 165 (65-105)
--- NOTE | 2020-08-19 04:10 | PC.NURSE ---
Patient transferred to post room #292 via wheelchair. Support person present. Oriented to unit, room, information board, rooming in, admission packet and security measures. Patient verbalizes understanding.
[2020-08-19] MEDS: DOCUSATE SODIUM 100 MG CAPSULE PO ×2 (04:51→17:42)
[2020-08-19] MEDS: ACETAMINOPHEN 325 MG TABLET 650 MG PO ×2 (04:51→17:42)
[2020-08-19 08:31] LABS: Glucose Point of Care 96 (65-105)
--- NOTE | 2020-08-19 08:41 | WPDANLDPN2 ---
Anes-Prog Note L&D Date/Time: 08/19/20 08:41 Comfortable throughout: labor and delivery Neuraxial method: epidural Epidural/Spinal procedure site: clean & non-tender Neuro status: Neuro function grossly intact. Cardiovascular status: normal Respiratory status: normal Airway patency: baseline Mental status: baseline Post-Op hydration status: normal Vital Signs: Last Vital Signs Temp 37.1 C 08/19/20 06:29 Pulse 94 08/19/20 06:29 Resp 18 08/19/20 06:29 BP 141/85 H 08/19/20 06:29 Pulse Ox 96 08/19/20 04:55 Pain score (VAS): 0 I/O: Intake & Output 08/18/20 08/19/20 08/19/20 23:59 07:59 15:59 Intake Total 1050 Output Total 1000 800 Balance 50 -800 Post-procedural complaints: none Patient feedback: Patient satisfied with anesthetic care.
[2020-08-19 11:03] LABS: Glucose Point of Care 148 (65-105)
--- NOTE | 2020-08-19 11:24 | PM.OBPNVD ---
OB - PN: Subj Subjective Date/time seen: 08/19/20 11:24 Patient comments: no complaints baby status: doing well OB - PN: Obj Data Labs CBC & Chem 7: 08/18/20 01:40 08/18/20 01:40 Labs: Laboratory Results - last 24 hr 08/18/20 08/18/20 08/18/20 07:37 12:22 16:25 POC Capillary Glucose 74 81 RPR Non-reactive Blood Type Antibody Screen 08/18/20 08/18/20 08/18/20 16:25 17:49 20:22 POC Capillary Glucose 90 78 RPR Blood Type B Positive Antibody Screen Negative 08/18/20 08/19/20 08/19/20 22:23 00:28 01:47 POC Capillary Glucose 80 90 102 RPR Blood Type Antibody Screen 08/19/20 08/19/20 08/19/20 04:05 08:28 10:51 POC Capillary Glucose 165 H 96 148 H RPR Blood Type Antibody Screen OB - PN A/P Assessment and Plan (1) Preeclampsia: Code(s): O14.90 - Unspecified pre-eclampsia, unspecified trimester Status: Acute Assessment and Plan: observe BP starting diuresis (2) GDM, class A2: Code(s): O24.419 - Gestational diabetes mellitus in , unspecified control Status: Acute Assessment and Plan: continue accuchecks Plan day: 0 Plan: routine care Time Spent With Patient Time: Total time spent is greater than 50% in coordination of care (as documented) at patient's floor/unit and/or counseling patient: Exam Narrative: Exam Narrative: fundus firm, nt inc bandage intact
[2020-08-19 14:15] LABS: Glucose Point of Care 127 (65-105)
[2020-08-19 18:42] LABS: Glucose Point of Care 112 (65-105)
[2020-08-20] VITALS (8 sets, daily range): BP systolic 130–174; BP diastolic 71–101; PULSE 86–101; RESP 16; TEMP 36.2–36.6; O2SAT 96–99
[2020-08-20 05:30] LABS: Glucose Point of Care 104 (65-105)
[2020-08-20 05:55] LABS: Hematocrit 28.6 % (37.0-47.0); Hemoglobin 9.2 g/dL (12.0-15.0)
[2020-08-20] MEDS: LEVOTHYROXINE SODIUM 112 MCG TABLET PO (07:07)
--- NOTE | 2020-08-20 09:46 | PM.OBPNVD ---
OB - PN: Subj Subjective Date/time seen: 08/20/20 09:46 Interval history: No PIH sx Patient comments: no complaints and pain well controlled [place] baby status: doing well OB - PN: Obj Data Labs CBC & Chem 7: 08/20/20 05:22 08/18/20 01:40 Labs: Laboratory Results - last 24 hr 08/19/20 08/19/20 08/19/20 10:51 14:08 18:39 Hgb Hct POC Capillary Glucose 148 H 127 H 112 H 08/20/20 08/20/20 05:22 05:27 Hgb 9.2 L Hct 28.6 L POC Capillary Glucose 104 OB - PN A/P Assessment and Plan (1) GDM, class A2: Code(s): O24.419 - Gestational diabetes mellitus in , unspecified control Status: Acute Assessment and Plan: sugars good will dc accuchecks (2) Preeclampsia: Code(s): O14.90 - Unspecified pre-eclampsia, unspecified trimester Status: Acute Assessment and Plan: BP stable Plan day: 1 Plan: routine care Time Spent With Patient Time: Total time spent is greater than 50% in coordination of care (as documented) at patient's floor/unit and/or counseling patient: Exam : Bimanual exam- vagina & uterus: other (Uterus firm, nt @U)
[2020-08-20 09:54] LABS: Glucose Point of Care 120 (65-105)
[2020-08-20] MEDS: POLYSACCHARIDE IRON COMPLEX 150 MG CAPSULE PO (10:11)
[2020-08-20] MEDS: DOCUSATE SODIUM 100 MG CAPSULE PO (10:11)
[2020-08-20] MEDS: ACETAMINOPHEN 325 MG TABLET 650 MG PO (11:50)
[2020-08-20 13:37] LABS: Glucose Point of Care 124 (65-105)
[2020-08-20 19:32] LABS: Glucose Point of Care 113 (65-105)
--- NOTE | 2020-08-20 22:05 | PC.NURSE ---
08/20/2019 at 1900 Patient viewed the discharge video Mother & Baby Care, The First Two Weeks . Patient was given the opportunity and encouraged to ask questions. Patient verbalized understanding of information shared and has been given the mother/baby guide for home reference.
[2020-08-21 04:31] VITALS: BP 153/80; PULSE 93; O2SAT 95
[2020-08-21] MEDS: MEASLES,MUMPS,RUBELLA VACCINE 0.5 ML VIAL SUB-Q (05:21)
[2020-08-21] MEDS: LEVOTHYROXINE SODIUM 112 MCG TABLET PO (07:13)
[2020-08-21] MEDS: ACETAMINOPHEN 325 MG TABLET 650 MG PO (07:15)
[2020-08-21 08:20] VITALS: BP 127/73; PULSE 86; RESP 18; TEMP 37.4; O2SAT 99
[2020-08-21] MEDS: POLYSACCHARIDE IRON COMPLEX 150 MG CAPSULE PO (09:09)
[2020-08-21] MEDS: DOCUSATE SODIUM 100 MG CAPSULE PO (09:10)
--- NOTE | 2020-08-21 09:30 | PM.OBPNVD ---
OB - PN: Subj Subjective Date/time seen: 08/21/20 09:30 Interval history: No PIH sx Patient comments: no complaints and pain well controlled baby status: doing well OB - PN: Obj Data Labs CBC & Chem 7: 08/20/20 05:22 08/18/20 01:40 Labs: Laboratory Results - last 24 hr 08/20/20 08/20/20 08/20/20 09:51 13:34 19:18 POC Capillary Glucose 120 H 124 H 113 H OB - PN A/P Assessment and Plan (1) Preeclampsia: Code(s): O14.90 - Unspecified pre-eclampsia, unspecified trimester Status: Acute Assessment and Plan: good diuresis BP stable Plan day: 2 Plan: routine care, discharge home, follow up 6 weeks (and 1 week BP check) and other (plans micronor) Time Spent With Patient Time: Total time spent is greater than 50% in coordination of care (as documented) at patient's floor/unit and/or counseling patient: Exam : Bimanual exam- vagina & uterus: other (Uterus firm, nt @U)
[2020-08-24 10:15] VITALS: BP 158/87; PULSE 79; RESP 20; TEMP 36.8; O2SAT 100
== END 2020-08-21 13:43 | disposition home or self-care (01) | DRG 807 ==
LOC: ANHOBPP 08-18 01:07 → ANHLDR 08-18 07:39 → ANHOB2 08-21 09:33 → ANHLDR 08-23 12:48 → ANHOB2 08-23 12:48
PROVIDERS: Admitting Provider Obstetrics & Gynecology; Visit Provider Obstetrics & Gynecology Gynecology
DX: O14.94 Unspecified pre-eclampsia, complicating childbirth (principal); Z37.0 Single live birth; Z3A.37 37 weeks gestation of pregnancy; O99.284 Endocrine, nutritional and metabolic diseases complicating childbirth; E03.9 Hypothyroidism, unspecified; O99.344 Other mental disorders complicating childbirth; F41.8 Other specified anxiety disorders; O99.02 Anemia complicating childbirth; D64.9 Anemia, unspecified; O70.1 Second degree perineal laceration during delivery; O24.429 Gestational diabetes mellitus in childbirth, unspecified control; O99.824 Streptococcus B carrier state complicating childbirth; O36.8330 Maternal care for abnormalities of the fetal heart rate or rhythm, third trimester, not applicable or unspecified
CPT/HCPCS: 36415; 80053; 81001; 84550; 85014; 85018; 85025; 86592; 86850; 86900; 86901; 87077; 87086; 87088; 88307; 90710; A9270; J0131; J0290; J2405; J2590; J2795; J3010; J7120

== ENCOUNTER 2020-08-25 13:45 | Outpatient (CLI) | payer OTHER, SELFPAY ==
[2020-08-25 14:18] VITALS: BP 140/76; PULSE 79
[2020-08-25 14:21] VITALS: BP 135/82; PULSE 68
[2020-08-25 14:31] VITALS: BP 143/68; PULSE 78
[2020-08-25 14:33] LABS: Basophils Absolute Auto 0.1 K/mm3 (0.0-0.1); Basophils Percent Auto 0.8 % (0.2-1.2); Eosinophils Absolute Auto 0.3 K/mm3 (0-0.3); Eosinophils Percent Auto 3.1 % (0-4.4); Hematocrit 34.8 % (37.0-47.0); Hemoglobin 11.1 g/dL (12.0-15.0); Immature Granulocyte Absolute 0.19 K/mm3 (0.00-0.031); Immature Granulocyte Percent A 1.8 % (0-0.5); Lymphocytes Absolute Auto 2.25 K/mm3 (0.9-3.2); Lymphocytes Percent Auto 21.5 % (18.3-44.2); Mean Corpuscular HGB Conc 31.9 g/dl (32-36); Mean Corpuscular Hemoglobin 26.1 pg (26-34); Mean Corpuscular Volume 81.9 fl (80-100); Mean Platelet Volume 10.1 fl (7.4-10.4); Monocytes Absolute Auto 0.5 K/mm3 (0.1-0.6); Monocytes Percent Auto 4.7 % (2.6-8.5); Neutrophils Absolute Auto 7.1 K/mm3 (1.3-6.7); Neutrophils Percent Auto 68.1 % (45.5-73.1); Platelet Count Result 310 k/mm3 (150-375); Red Blood Count 4.25 M/mm3 (4.2-5.4); White Blood Count 10.5 K/mm3 (4.5-10.0)
[2020-08-25 14:46] VITALS: BP 140/75; PULSE 72
[2020-08-25 14:47] LABS: Alanine Aminotransferase 54 U/L (4-35); Albumin Level 3.8 g/dL (3.5-5.1); Alkaline Phosphatase 119 U/L (38-126); Anion Gap 8 mmol/L (8-16); Aspartate Amino Transferase 44 U/L (14-36); Bilirubin,Total 0.4 mg/dL (0.2-1.3); Blood Urea Nitrogen 14 mg/dL (7-17); Calcium 9.3 mg/dL (8.4-10.2); Carbon Dioxide 28 mmol/L (22-30); Chloride 103 mmol/L (98-107); Estimated Glomerular Filt Rate > 60; Glucose 104 mg/dL (65-105); Sodium 139 mmol/L (137-145); Uric Acid 7.1 mg/dL (2.5-7.5)
[2020-08-25 15:01] VITALS: BP 134/76; PULSE 77
== END 2020-08-25 15:15 | disposition home or self-care (01) ==
LOC: ANHOBOP 13:49 → ANHOBPP 13:49
PROVIDERS: PCP Internal Medicine; Visit Provider Obstetrics & Gynecology Gynecology
DX: O16.5 Unspecified maternal hypertension, complicating the puerperium (principal); Z3A.00 Weeks of gestation of pregnancy not specified
CPT/HCPCS: 36415; 80053; 84550; 85025; 99199

== ENCOUNTER 2020-08-28 10:02 | Outpatient (CLI) | payer OTHER, SELFPAY ==
[2020-08-28 10:24] VITALS: BP 139/65; PULSE 80
[2020-08-28 10:31] VITALS: BP 126/63; PULSE 79
[2020-08-28 10:37] LABS: Basophils Absolute Auto 0.1 K/mm3 (0.0-0.1); Basophils Percent Auto 0.8 % (0.2-1.2); Eosinophils Absolute Auto 0.2 K/mm3 (0-0.3); Eosinophils Percent Auto 2.6 % (0-4.4); Hematocrit 36.4 % (37.0-47.0); Hemoglobin 11.4 g/dL (12.0-15.0); Immature Granulocyte Absolute 0.08 K/mm3 (0.00-0.031); Immature Granulocyte Percent A 0.9 % (0-0.5); Lymphocytes Absolute Auto 2.28 K/mm3 (0.9-3.2); Lymphocytes Percent Auto 25.4 % (18.3-44.2); Mean Corpuscular HGB Conc 31.3 g/dl (32-36); Mean Corpuscular Hemoglobin 26.3 pg (26-34); Mean Corpuscular Volume 83.9 fl (80-100); Mean Platelet Volume 9.9 fl (7.4-10.4); Monocytes Absolute Auto 0.6 K/mm3 (0.1-0.6); Monocytes Percent Auto 6.5 % (2.6-8.5); Neutrophils Absolute Auto 5.7 K/mm3 (1.3-6.7); Neutrophils Percent Auto 63.8 % (45.5-73.1); Platelet Count Result 305 k/mm3 (150-375); Red Blood Count 4.34 M/mm3 (4.2-5.4); Red Cell Distribution Width 14.7 % (11.5-14.5)
[2020-08-28 10:46] VITALS: BP 133/77; PULSE 80
[2020-08-28 11:01] VITALS: BP 142/77; PULSE 65
[2020-08-28 11:04] LABS: Alanine Aminotransferase 47 U/L (4-35); Albumin Level 3.8 g/dL (3.5-5.1); Alkaline Phosphatase 131 U/L (38-126); Anion Gap 6 mmol/L (8-16); Aspartate Amino Transferase 39 U/L (14-36); Bilirubin,Total 0.4 mg/dL (0.2-1.3); Blood Urea Nitrogen 15 mg/dL (7-17); Calcium 9.3 mg/dL (8.4-10.2); Carbon Dioxide 30 mmol/L (22-30); Chloride 104 mmol/L (98-107); Estimated Glomerular Filt Rate > 60; Glucose 103 mg/dL (65-105); Potassium 4.2 mmol/L (3.4-5.0); Sodium 140 mmol/L (137-145)
[2020-08-28 11:16] VITALS: BP 138/69; PULSE 80
--- NOTE | 2020-08-28 11:30 | PC.NURSE ---
Nofified Dr Toussaint of labs and b/p's orders to discharge home and followup with scheduled appointment.
== END 2020-08-28 11:32 | disposition home or self-care (01) ==
LOC: ANHOBOP 10:07 → ANHOBPP 10:09
PROVIDERS: PCP Internal Medicine; Visit Provider Obstetrics & Gynecology Gynecology
DX: O13.9 Gestational [pregnancy-induced] hypertension without significant proteinuria, unspecified trimester (principal); Z3A.00 Weeks of gestation of pregnancy not specified
CPT/HCPCS: 36415; 80053; 84550; 85025; 99199

== ENCOUNTER 2020-09-29 08:17 | Outpatient (CLI) | payer OTHER, SELFPAY ==
[2020-09-29 09:01] LABS: Glucose Fasting 118 mg/dL (70-99)
[2020-09-29 09:26] LABS: Free T4 Free Thyroxine 1.34 ng/dL (0.76-1.46); Thyroid Stimulating Hormone 0.16 uIU/mL (0.36-3.74); Vitamin B12 949 pg/mL (193-986)
[2020-09-29 10:23] LABS: Glucose 1 Hour 172 mg/dL (<180)
[2020-09-29 10:56] LABS: Glucose 2 Hour 123 mg/dL (<155)
[2020-10-04 21:08] LABS: Vitamin D 25 Hydroxy 61 ng/mL (30-100)
== END 2020-09-29 08:18 | disposition home or self-care (01) ==
LOC: CHSLAB 08:20
PROVIDERS: PCP Internal Medicine; Visit Provider Obstetrics & Gynecology Gynecology
DX: O24.419 Gestational diabetes mellitus in pregnancy, unspecified control (principal); E55.9 Vitamin D deficiency, unspecified; E53.8 Deficiency of other specified B group vitamins
CPT/HCPCS: 36415; 82306; 82607; 82951; 84439; 84443

== ENCOUNTER 2021-01-05 13:49 | Outpatient (CLI) | payer OTHER, SELFPAY ==
[2021-01-05 14:55] LABS: Free T4 Free Thyroxine 0.89 ng/dL (0.76-1.46); Thyroid Stimulating Hormone 25.46 uIU/mL (0.36-3.74)
== END 2021-01-05 13:50 | disposition home or self-care (01) ==
LOC: CHSLAB 13:52
PROVIDERS: PCP Internal Medicine; Visit Provider Obstetrics & Gynecology Gynecology
DX: E03.9 Hypothyroidism, unspecified (principal)
CPT/HCPCS: 36415; 84439; 84443

== ENCOUNTER 2021-06-27 07:27 | Outpatient (CLI) | payer OTHER, SELFPAY ==
[2021-06-27 08:42] LABS: Free T4 Free Thyroxine 0.89 ng/dL (0.76-1.46); Thyroid Stimulating Hormone 27.23 uIU/mL (0.36-3.74)
[2021-07-02 03:31] LABS: Vitamin D 25 Hydroxy 48 ng/mL (30-100)
== END 2021-06-27 07:28 | disposition home or self-care (01) ==
LOC: CHSLAB 07:29
PROVIDERS: PCP Internal Medicine; Visit Provider Obstetrics & Gynecology Gynecology
DX: E55.9 Vitamin D deficiency, unspecified (principal); E03.9 Hypothyroidism, unspecified
CPT/HCPCS: 36415; 82306; 84439; 84443

== ENCOUNTER 2022-06-25 08:26 | Outpatient (CLI) | payer OTHER, SELFPAY ==
[2022-06-25 08:44] LABS: Hematocrit 42.3 % (35.0-49.0); Hemoglobin 13.9 g/dL (12.0-15.0); Mean Corpuscular HGB Conc 32.9 g/dL (32.0-36.0); Mean Corpuscular Hemoglobin 27.4 pg (27.0-31.0); Mean Corpuscular Volume 83.4 fL (78.0-102.0); Mean Platelet Volume 10.7 fl (9.2-11.8); Platelet Count Result 278 K/mm3 (150-420); Red Blood Count 5.07 M/mm3 (4.20-5.40); Red Cell Distribution Width 13.2 % (11.6-14.4); White Blood Count 9.7 K/mm3 (4.8-10.8)
[2022-06-25 09:02] LABS: Hemoglobin A1C 5.9 % (<5.7)
[2022-06-25 09:33] LABS: Ferritin 150 ng/mL (8-252); Free T4 Free Thyroxine 1.14 ng/dL (0.76-1.46); Thyroid Stimulating Hormone 8.56 uIU/mL (0.36-3.74); Vitamin B12 967 pg/mL (193-986)
[2022-06-28 23:17] LABS: Vitamin D 25 Hydroxy 51 ng/mL (30-100)
== END 2022-06-25 08:27 | disposition home or self-care (01) ==
PROVIDERS: Visit Provider Obstetrics & Gynecology Gynecology
DX: Z01.419 Encounter for gynecological examination (general) (routine) without abnormal findings (principal); N92.0 Excessive and frequent menstruation with regular cycle
CPT/HCPCS: 36415; 82306; 82607; 82728; 83036; 84439; 84443; 85027

== ENCOUNTER → 2022-08-01 10:11 | Outpatient (CLI) | payer OTHER, SELFPAY ==
--- NOTE | ~2022-08-01 | US_ITS ---
Pelvic ultrasound. Clinical History: First trimester , vaginal bleeding Technique: Realtime transvaginal scanning of the pelvis was performed. Findings: The uterus is anteverted, and contains an intrauterine gestation. [place]-rump length of 2.1 cm corresponds to estimated gestational age of 8 weeks 5 days. heart rate is 180 bpm. Small sub chorionic hemorrhage noted. The right ovary measures 1.9 x 2.4 x 2.0 cm. No significant right ovarian or adnexal mass is seen. The left ovary measures 2.8 x 1.6 x 3.0 cm. No significant left ovarian or adnexal mass is seen. There is no evidence of free fluid in the cul de sac. Impression: Live intrauterine gestation with estimated gestational age of 8 weeks 5 days. heart rate is 180 bpm. Small subchorionic hemorrhage. Reviewed, dictated and finalized at location [] PRESIDENT PAYER Impression: Live intrauterine gestation with estimated gestational age of 8 weeks 5 days. F etal heart rate is 180 bpm. Small subchorionic hemorrhage.
== END ==
PROVIDERS: PCP Physician Assistant Medical; Visit Provider Obstetrics & Gynecology Gynecology
DX: O26.851 Spotting complicating pregnancy, first trimester (principal); Z3A.08 8 weeks gestation of pregnancy
CPT/HCPCS: 76817

== ENCOUNTER → 2022-08-29 12:51 | Outpatient (CLI) | payer OTHER, SELFPAY ==
--- NOTE | ~2022-08-29 | US_ITS ---
EXAMINATION: US OB limited DATE: 08/29/2022 13:37 INDICATION: Subchorionic hematoma during first trimester TECHNIQUE: Real-time ultrasound of the pelvis was performed. The interpreting radiologist was not pre sent for the study. COMPARISON: 08/01/2022 FINDINGS: The uterus measures 14.5 x 10.2 x 11.2 cm. A live intrauterine is seen. No subcho rionic hematoma is identified. heart rate is 159 beats per minute (bpm). IMPRESSION: 1. Single living fetus. 2. No subchorionic hematoma identified. Reviewed, dictated and finalized at location L. CLE RENTAL CLERK
== END ==
PROVIDERS: PCP Family Medicine; Visit Provider Obstetrics & Gynecology Gynecology
DX: O36.8910 Maternal care for other specified fetal problems, first trimester, not applicable or unspecified (principal); Z3A.00 Weeks of gestation of pregnancy not specified
CPT/HCPCS: 76815

== ENCOUNTER 2022-08-29 16:06 | Outpatient (CLI) | payer OTHER, SELFPAY ==
[2022-08-29 16:36] LABS: Basophils Absolute Auto 0.03 K/mm3 (0.00-0.10); Basophils Percent Auto 0.2 % (0.0-1.0); Eosinophils Absolute Auto 0.11 K/mm3 (0.02-0.50); Eosinophils Percent Auto 0.8 % (1.0-6.0); Hemoglobin 12.6 g/dL (12.0-15.0); Immature Granulocyte Absolute 0.07 K/mm3 (0.00-0.00); Immature Granulocyte Percent A 0.5 % (0.0-0.0); Lymphocytes Absolute Auto 2.42 K/mm3 (1.10-4.50); Lymphocytes Percent Auto 18.5 % (18.0-42.0); Mean Corpuscular HGB Conc 33.2 g/dL (32.0-36.0); Mean Corpuscular Hemoglobin 27.5 pg (27.0-31.0); Mean Corpuscular Volume 82.8 fL (78.0-102.0); Mean Platelet Volume 10.7 fl (9.2-11.8); Monocytes Percent Auto 3.1 % (2.0-11.0); Neutrophils Absolute Auto 10.1 K/mm3 (1.7-7.2); Neutrophils Percent Auto 76.9 % (50.0-70.0); Platelet Count Result 224 K/mm3 (150-420); Red Blood Count 4.59 M/mm3 (4.20-5.40); Red Cell Distribution Width 12.8 % (11.6-14.4); White Blood Count 13.1 K/mm3 (4.8-10.8)
[2022-08-29 16:50] LABS: Hemoglobin A1C 5.8 % (<5.7)
[2022-08-29 17:14] LABS: HIV 1 P24 AG Negative (Negative); HIV 1/2 AB Negative (Negative)
[2022-08-29 17:20] LABS: Free T4 Free Thyroxine 1.25 ng/dL (0.76-1.46); Thyroid Stimulating Hormone 2.34 uIU/mL (0.36-3.74)
[2022-08-31 16:17] LABS: Rubella IgG Antibody 9.34 Index
[2022-09-01 12:11] LABS: RPR Screen Non-Reactive (Non-Reactive)
[2022-09-01 17:29] LABS: Vitamin D 25 Hydroxy 53 ng/mL (30-100)
[2022-09-01 19:34] LABS: Hepatitis B Surface Antigen Nonreactive (Nonreactive); Hepatitis C Signal to Cutoff 0.02 ratio (<1.00); Hepatitis C Virus Antibody Nonreactive (Nonreactive)
== END 2022-08-29 16:07 | disposition home or self-care (01) ==
LOC: CHSLAB 16:11
PROVIDERS: PCP Family Medicine; Visit Provider Obstetrics & Gynecology Gynecology
DX: Z36.9 Encounter for antenatal screening, unspecified (principal)
CPT/HCPCS: 36415; 82306; 83036; 84439; 84443; 85025; 86592; 86703; 86762; 86803; 86850; 86900; 86901; 87340

== ENCOUNTER 2022-08-31 08:10 | Outpatient (CLI) | payer OTHER, SELFPAY ==
[2022-08-31 08:38] LABS: Collection Time Urine 24 HOURS
[2022-08-31 08:54] LABS: Creatinine Urine 104.12 mg/dL (40-278); Total Protein Urine Random 13.7 mg/dL (0.0-11.9)
[2022-08-31 08:57] LABS: Estimated Glomerular Filt Rate > 60
[2022-08-31 09:20] LABS: Serum Creat 0.62; Total Protein Urine 24 Hr 226 mg/24hr (0-149); Total Volume 24 Hour Urine 1650 ml
[2022-08-31 09:29] LABS: Patient Weight 305 Lbs
[2022-08-31 09:31] LABS: Creatinine Clearance Urine 144.4 ml/min (97-137)
== END 2022-08-31 08:11 | disposition home or self-care (01) ==
LOC: CHSLAB 08:12
PROVIDERS: PCP Family Medicine; Visit Provider Obstetrics & Gynecology Gynecology
DX: Z36.9 Encounter for antenatal screening, unspecified (principal)
CPT/HCPCS: 36415; 81050; 82565; 82575; 84156

== ENCOUNTER 2022-09-12 16:34 | Outpatient (CLI) | payer OTHER, SELFPAY ==
--- NOTE | ~2022-09-12 | US_ITS ---
EXAMINATION: US OB follow up DATE: 09/12/2022 17:09 INDICATION: Spotting in second trimester TECHNIQUE: Real-time transabdominal obstetric ultrasound. FINDINGS: Ultrasound dated 08/29/2022 There is a single living fetus in vertex presentation. The placenta is posterior without placenta pr evia. cardiac activity and movement is noted with a heart rate of 163 beats per minute. T he amniotic fluid volume is normal. The following biometric data were obtained: BPD: 29mm corresponds to gestational age 15 weeks 2 days. Head circumference: 109mm corresponds to gestational age 15 weeks 2 days. Abdominal circumference: 103mm corresponds to gestational age 16 weeks 2 days. Femur length: 18mm corresponds to gestational age 15 weeks 3 days. Estimated weight: 35grams +/- 20grams.] IMPRESSION: 1. Single living intrauterine in vertex presentation with an estimated gestational age of 15 weeks 4 days by current ultrasound. Reviewed, dictated and finalized at location A. E KNOCKER IMPRESSION: 1. Single living intrauterine in vertex presentation with an estimat ed gestational age of 15 weeks 4 days by current ultrasound.
== END 2022-09-12 16:35 | disposition home or self-care (01) ==
PROVIDERS: PCP Family Medicine; Visit Provider Obstetrics & Gynecology Gynecology
DX: O26.852 Spotting complicating pregnancy, second trimester (principal); Z3A.15 15 weeks gestation of pregnancy
CPT/HCPCS: 76816

== ENCOUNTER 2022-11-21 15:10 | Outpatient (CLI) | payer OTHER, SELFPAY ==
--- NOTE | ~2022-11-21 | US_ITS ---
EXAMINATION: US venous doppler [facility] DATE: 11/21/2022 15:41 INDICATION: Left lower limb edema TECHNIQUE: Jeff scale images without and with compression and Doppler images of the left lower extrem ity veins were obtained. COMPARISON: None FINDINGS: The left common femoral vein, profunda femoral vein, femoral vein, popliteal vein, peroneal trunk, posterior tibial veins, and greater saphenous vein are patent. IMPRESSION: 1. Patent left lower extremity veins. No evidence of deep venous thrombosis. Reviewed, dictated and finalized at location L.
== END 2022-11-21 15:11 | disposition home or self-care (01) ==
LOC: CHSIMG 15:13
PROVIDERS: PCP Physician Assistant Medical; Visit Provider Obstetrics & Gynecology Gynecology
DX: R06.9 Unspecified abnormalities of breathing (principal)
CPT/HCPCS: 93971

== ENCOUNTER 2022-12-21 13:56 | Outpatient (CLI) | payer OTHER, SELFPAY ==
[2022-12-21 14:45] LABS: Hematocrit 34.2 % (35.0-49.0); Hemoglobin 11.2 g/dL (12.0-15.0)
[2022-12-21 15:06] LABS: Hemoglobin A1C 5.4 % (<5.7)
[2022-12-21 17:48] LABS: HIV 1 P24 AG Negative (Negative); HIV 1/2 AB Negative (Negative)
[2022-12-29 20:12] LABS: Vitamin D 25 Hydroxy 47 ng/mL (30-100)
== END 2022-12-21 13:57 | disposition home or self-care (01) ==
LOC: CHSLAB 13:58
PROVIDERS: PCP Physician Assistant Medical; Visit Provider Obstetrics & Gynecology Gynecology
DX: Z34.93 Encounter for supervision of normal pregnancy, unspecified, third trimester (principal)
CPT/HCPCS: 36415; 82306; 83036; 85014; 85018; 86703

== ENCOUNTER 2023-01-30 15:25 | Outpatient (CLI) | payer OTHER, SELFPAY ==
[2023-01-30] VITALS (7 sets, daily range): BP systolic 93–144; BP diastolic 61–66; PULSE 74–93
--- NOTE | 2023-01-30 15:35 | PC.NURSE ---
Per no NST required due to pt having NST done at [facility] prior to Dr. Reyes appointment at the office.
[2023-01-30 16:01] LABS: Basophils Percent Auto 0.3 % (0.2-1.2); Eosinophils Absolute Auto 0.1 K/mm3 (0-0.3); Eosinophils Percent Auto 0.8 % (0-4.4); Hematocrit 37.7 % (37.0-47.0); Hemoglobin 11.8 g/dL (12.0-15.0); Immature Granulocyte Absolute 0.14 K/mm3 (0.00-0.031); Immature Granulocyte Percent A 1.2 % (0-0.5); Lymphocytes Absolute Auto 1.83 K/mm3 (0.9-3.2); Lymphocytes Percent Auto 15.7 % (18.3-44.2); Mean Corpuscular HGB Conc 31.3 g/dl (32-36); Mean Corpuscular Hemoglobin 25.9 pg (26-34); Mean Corpuscular Volume 82.7 fl (80-100); Mean Platelet Volume 11.1 fl (7.4-10.4); Monocytes Absolute Auto 0.5 K/mm3 (0.1-0.6); Monocytes Percent Auto 4.1 % (2.6-8.5); Neutrophils Absolute Auto 9.1 K/mm3 (1.3-6.7); Neutrophils Percent Auto 77.9 % (45.5-73.1); Platelet Count Result 211 k/mm3 (150-375); Red Blood Count 4.56 M/mm3 (4.2-5.4); Red Cell Distribution Width 14.9 % (11.5-14.5); White Blood Count 11.7 K/mm3 (4.5-10.0)
[2023-01-30 16:09] LABS: Appearance Urine Cloudy (Clear); Bacteria Urine 2+ /hpf; Bilirubin Urine Negative (Negative); Blood Urine Negative (Negative); Color Urine Yellow (Yellow); Glucose Urine UA Negative (Negative); Ketones Urine Negative (Negative); Leukocyte Esterase Ur 2+ LEU/UL (NEGATIVE); Nitrate Urine Negative (Negative); Non Pathogenic Casts 0-2; Protein Urine Trace mg/dL (Negative); RBC Urine 0-2 /hpf (0-2); Specific Grav Ur 1.023 (1.001-1.035); Squamous Epithelial Cell Urine Many /hpf (Few); Urobilinogen Urine 0.2 mg/dL (<2.0); WBC Urine 51-100 /hpf (0-3); pH Urine 5.5 (5.0-9.0)
[2023-01-30 16:11] LABS: Alanine Aminotransferase 20 U/L (6-35); Albumin Level 3.7 g/dL (3.5-5.1); Alkaline Phosphatase 133 U/L (38-126); Anion Gap 8 mmol/L (8-16); Aspartate Amino Transferase 21 U/L (14-36); Bilirubin,Total 0.3 mg/dL (0.2-1.3); Blood Urea Nitrogen 7 mg/dL (7-17); Calcium 9.3 mg/dL (8.4-10.2); Carbon Dioxide 24 mmol/L (22-30); Chloride 106 mmol/L (98-107); Estimated Glomerular Filt Rate > 60; Glucose 123 mg/dL (65-110); Potassium 4.2 mmol/L (3.4-5.0); Sodium 138 mmol/L (137-145); Uric Acid 4.8 mg/dL (2.5-7.5)
[2023-01-30 16:16] LABS: Add Urine Microscopic? YES
[2023-01-30 16:34] LABS: Creatinine Urine 91.1 mg/dL; Total Protein Urine Random 13 mg/dL; Ur Ttl Prot Creatinine Ratio 0.14 mg/mg (0-0.20)
--- NOTE | 2023-01-30 16:48 | PC.NURSE ---
Dr. Toussaint updated on blood pressures and labs. okay with pt going home. No further orders at this time.
== END 2023-01-30 16:50 | disposition home or self-care (01) ==
LOC: ANHOBOP 15:29 → ANHOBPP 15:29
PROVIDERS: PCP Physician Assistant Medical; Visit Provider Obstetrics & Gynecology Gynecology
DX: O13.9 Gestational [pregnancy-induced] hypertension without significant proteinuria, unspecified trimester (principal); Z3A.00 Weeks of gestation of pregnancy not specified
CPT/HCPCS: 36415; 80053; 81001; 82570; 84156; 84550; 85025; 87086; 87088; 99199

== ENCOUNTER 2023-02-13 16:49 | Outpatient (CLI) | payer OTHER, SELFPAY ==
[2023-02-13 17:16] VITALS: BP 125/73; PULSE 80
[2023-02-13 17:19] LABS: Basophils Percent Auto 0.3 % (0.2-1.2); Eosinophils Absolute Auto 0.1 K/mm3 (0-0.3); Eosinophils Percent Auto 0.6 % (0-4.4); Hematocrit 36.9 % (37.0-47.0); Hemoglobin 11.4 g/dL (12.0-15.0); Immature Granulocyte Absolute 0.07 K/mm3 (0.00-0.031); Immature Granulocyte Percent A 0.7 % (0-0.5); Lymphocytes Absolute Auto 1.82 K/mm3 (0.9-3.2); Mean Corpuscular HGB Conc 30.9 g/dl (32-36); Mean Corpuscular Hemoglobin 25.4 pg (26-34); Mean Corpuscular Volume 82.2 fl (80-100); Mean Platelet Volume 11.8 fl (7.4-10.4); Monocytes Absolute Auto 0.5 K/mm3 (0.1-0.6); Neutrophils Absolute Auto 8.2 K/mm3 (1.3-6.7); Neutrophils Percent Auto 76.4 % (45.5-73.1); Platelet Count Result 175 k/mm3 (150-375); Red Blood Count 4.49 M/mm3 (4.2-5.4); White Blood Count 10.7 K/mm3 (4.5-10.0)
[2023-02-13 17:28] LABS: Appearance Urine Cloudy (Clear); Bacteria Urine Rare /hpf; Bilirubin Urine Negative (Negative); Blood Urine Negative (Negative); Color Urine Yellow (Yellow); Glucose Urine UA Negative (Negative); Ketones Urine Negative (Negative); Leukocyte Esterase Ur 2+ LEU/UL (NEGATIVE); Nitrate Urine Negative (Negative); Non Pathogenic Casts 0-2; Protein Urine Negative (Negative); RBC Urine 0-2 /hpf (0-2); Specific Grav Ur 1.019 (1.001-1.035); Squamous Epithelial Cell Urine Moderate /hpf (Few); WBC Urine 21-50 /hpf (0-3); pH Urine 6.5 (5.0-9.0)
[2023-02-13 17:29] LABS: Add Urine Microscopic? YES
[2023-02-13 17:31] VITALS: BP 122/72; PULSE 77
[2023-02-13 17:32] LABS: Alanine Aminotransferase 16 U/L (6-35); Albumin Level 3.5 g/dL (3.5-5.1); Alkaline Phosphatase 151 U/L (38-126); Anion Gap 3 mmol/L (8-16); Aspartate Amino Transferase 21 U/L (14-36); Bilirubin,Total 0.3 mg/dL (0.2-1.3); Blood Urea Nitrogen 13 mg/dL (7-17); Calcium 9.5 mg/dL (8.4-10.2); Carbon Dioxide 24 mmol/L (22-30); Chloride 108 mmol/L (98-107); Estimated Glomerular Filt Rate > 60; Glucose 79 mg/dL (65-110); Potassium 4.5 mmol/L (3.4-5.0); Sodium 135 mmol/L (137-145); Uric Acid 5.6 mg/dL (2.5-7.5)
[2023-02-13 17:46] VITALS: BP 131/70; PULSE 76
[2023-02-13 17:57] LABS: Creatinine Urine 61.3 mg/dL; Total Protein Urine Random 9 mg/dL; Ur Ttl Prot Creatinine Ratio 0.15 mg/mg (0-0.20)
--- NOTE | 2023-02-13 18:00 | PC.NURSE ---
Dr Toussaint notified of BP's and lab results.
[2023-02-13 18:01] VITALS: BP 127/67; PULSE 78
== END 2023-02-13 18:10 | disposition home or self-care (01) ==
LOC: ANHOBOP 16:51 → ANHOBPP 16:52
PROVIDERS: PCP Physician Assistant Medical; Visit Provider Obstetrics & Gynecology Gynecology
DX: O13.9 Gestational [pregnancy-induced] hypertension without significant proteinuria, unspecified trimester (principal); Z3A.00 Weeks of gestation of pregnancy not specified
CPT/HCPCS: 36415; 80053; 81001; 82570; 84156; 84550; 85025; 87086; 87088; 99199

== ENCOUNTER 2023-02-21 16:26 | Outpatient (CLI) | payer OTHER, SELFPAY ==
[2023-02-21 17:02] VITALS: RESP 20; TEMP 37.1
[2023-02-21 17:29] VITALS: BP 124/59; PULSE 78
== END 2023-02-21 17:35 | disposition home or self-care (01) ==
LOC: ANHOBOP 17:20 → ANHLDR 17:21
PROVIDERS: PCP Physician Assistant Medical; Visit Provider Obstetrics & Gynecology Gynecology
DX: O42.90 Premature rupture of membranes, unspecified as to length of time between rupture and onset of labor, unspecified weeks of gestation (principal); Z3A.00 Weeks of gestation of pregnancy not specified
CPT/HCPCS: 59025; 84112; 99199

== ENCOUNTER 2023-05-07 09:02 | Outpatient (CLI) | payer OTHER, SELFPAY ==
--- NOTE | ~2023-05-07 | US_ITS ---
Abdominal Sonogram: Real-time sonographic imaging of the abdomen was performed. Clinical History: Abdominal pain, abnormal LFTs Findings: The liver appears echogenic, with no evidence of mass lesion or bile duct dilatation. Main portal vein demonstrates normal direction of flow. The spleen is normal in size without evidence of focal lesion. The gallbladder is well distended, and appears normal with no evidence of gallstone or wall thickening. The common bile duct measures 3 mm. The visualized pancreas, aorta, and IVC are un remarkable. The right kidney measures 11.0 cm in length and the left kidney measures approximately 9 .5 cm. There is no hydronephrosis or renal calculus. Impression: Diffuse fatty infiltration of liver. Reviewed, dictated and finalized at location M. Impression: Diffuse fatty infiltration of liver.
== END 2023-05-07 09:03 | disposition home or self-care (01) ==
LOC: CHSIMG 09:03
PROVIDERS: PCP Physician Assistant Medical; Visit Provider Physician Assistant Medical
DX: R74.8 Abnormal levels of other serum enzymes (principal); R10.9 Unspecified abdominal pain; R74.01 Elevation of levels of liver transaminase levels; K76.0 Fatty (change of) liver, not elsewhere classified
CPT/HCPCS: 76700

== ENCOUNTER 2023-07-30 08:24 | Outpatient (CLI) | payer OTHER, SELFPAY ==
--- NOTE | ~2023-07-30 | CT_ITS ---
CT of the Abdomen: Indication: Abdominal pain Technique: 2.5 mm axial scans were obtained through the abdomen following intravenous administration of 100 cc of Omnipaque 350. Dose reduction technique was used on this scan by utilizing automated ex posure control and iterative reconstruction technique. The dose-length product (DLP) was 1156.68 mGy- cm. Findings: Scans through the lung bases are unremarkable. Diffuse fatty infiltration of the liver noted. Liver measures 26 cm in length. Cholecystectomy clips are present. Spleen is mildly enlarged at 14.2 cm. The pancreas, gallbladder, adrenals and kidneys ar e within normal limits. No evidence of aortic aneurysm. No lymphadenopathy. Visualized bowel loops are unremarkable. No ascites. Impression: Diffuse fatty infiltration of liver. Hepatosplenomegaly. Reviewed, dictated and finalized at location . [facility] Impression: Diffuse fatty infiltration of liver. Hepatosplenomegaly.
== END 2023-07-30 08:25 | disposition home or self-care (01) ==
LOC: CHSIMG 08:25
PROVIDERS: PCP Physician Assistant Medical; Visit Provider Physician Assistant Medical
DX: R74.8 Abnormal levels of other serum enzymes (principal); R10.9 Unspecified abdominal pain; K76.0 Fatty (change of) liver, not elsewhere classified; R16.2 Hepatomegaly with splenomegaly, not elsewhere classified
CPT/HCPCS: 74160; Q9967

== ENCOUNTER 2024-03-22 08:56 | Outpatient (CLI) | payer OTHER, SELFPAY ==
--- NOTE | 2024-04-21 11:19 | WPDHOLTEREM ---
Holter/Event Monitor Holter/Event Monitor Date of procedure: 03/22/24 Holter/Event Procedure: Event Monitor Indications: Palpitations Conclusion: 1. 24 days event monitor between 03/22/24-04/17/24. There are 24 available transmissions for analysis. 2. Underlying rhythm is sinus rhythm. HR range 54-139 bpm; average HR 89 bpm. HR at 139 bpm was on 04/10/24 at 20:29. 3. No premature supraventricular complexes. No supraventricular tachycardia. 4. There are frequent premature ventricular complexes with total burden of 9%. No ventricular tachycardia. 5. No significant pauses greater than 2 seconds. 6. Patient reports 17 episodes of symptoms of skipped beat, lightheadedness, heart racing, shortness of breath, dizziness, symptom other than listed which demonstrate sinus rhythm, HR range 63-103 bpm with 13 episodes with PVC's.
== END 2024-03-22 08:57 | disposition home or self-care (01) ==
LOC: CHSCARD 08:57
PROVIDERS: PCP Physician Assistant Medical; Visit Provider Physician Assistant Medical
DX: R00.2 Palpitations (principal)
CPT/HCPCS: 93270

== ENCOUNTER 2025-04-29 19:20 | Emergency (ER) | payer OTHER, SELFPAY ==
[2025-04-29 19:39] VITALS: BP 110/60; PULSE 79; RESP 16; TEMP 36.6; O2SAT 100
--- NOTE | 2025-04-29 20:27 | ED.URI ---
HPI - URI/Sore Throat General Chief Complaint: Upper Respiratory Infection Stated Complaint: SINUS CONGESTION Time Seen by Provider: 04/29/25 20:20 Source: patient and RN notes reviewed Mode of arrival: ambulatory Limitations: no limitations History of Present Illness HPI Narrative: 35-year-old female presents Express Care complaining of Upper respiratory since last 2 weeks. Patient reports congestion, runny nose, scratchy throat, cough. Patient says her symptoms have got worse and she has developed mucopurulent nasal drainage or other the last 2 days. Patient has any chest pain, difficulty breathing, nausea vomiting, diarrhea, fevers, body aches, chills, or any other symptoms. Patient denies any significant past medical history. Patient taking [id number] goes dose of medication with some relief. Related Data Home Medications ?Medication ?Instructions ?Recorded ?Confirmed ?Last Taken ?Type cholecalciferol (vitamin D3) 250 250 mcg PO DAILY 09/17/22 02/28/25 1 Day Ago History mcg (10,000 unit) tablet ~02/09/23 lansoprazole 15 mg capsule,delayed 30 mg PO DAILY 01/22/23 02/28/25 1 Day Ago History release (Prevacid) ~02/09/23 norethindrone (contraceptive) 0.35 0.35 mg PO DAILY 03/08/24 02/28/25 Unknown History mg tablet cetirizine 10 mg capsule (All Day 10 mg PO DAILY PRN 11/15/24 02/28/25 Unknown History Allergy (cetirizine)) Allergies Allergy/AdvReac Type Severity Reaction Status Date / Time latex Allergy Intermediate Rash Verified 04/29/25 20:09 ibuprofen Allergy Swelling Verified 04/29/25 20:09 of Lip/Tongue/Throat paxlovid AdvReac Other Uncoded 02/28/25 08:05 Review of Systems Review of Systems: CONSTITUTIONAL: Denies fever, chills, body aches, or sweats. EYES: Denies visual changes, redness, or discharge. ENT: Positive for rhinorrhea, congestion, sore throat. Negative for otalgia. CARDIOVASCULAR: Denies chest pain, palpitations, or edema. RESPIRATORY: Positive for cough. Negative for dyspnea. GASTROINTESTINAL: Denies abdominal pain, nausea, vomiting, or diarrhea. GENITOURINARY: Denies dysuria or hematuria. SKIN: Denies rash or itching. MUSCULOSKELETAL: Denies back pain, joint pain, or myalgia. NEUROLOGIC: Denies headache, numbness, or weakness. PSYCHIATRIC: Denies anxiety or depression. All other systems reviewed are negative, except as documented in HPI. [facility] Past Medical History Medical History Dyslipidemia Preeclampsia PIH ( induced hypertension) Cirrhosis Diabetes mellitus type II, controlled (01/21/25) Anxiety Depression Anemia Hypothyroid Surgical History Surgical History No pertinent past surgical history Family History Family History Mother Diabetes mellitus Father Diabetes mellitus Hypothyroidism COPD (chronic obstructive pulmonary disease) CHF (congestive heart failure) Heart attack Mother Hypertension Grandparent Heart disease Social History Social History Social History: 02/22/25 very confident with medical forms Smoking status: Unknown if ever smoked Second hand tobacco smoke exposure: No Alcohol intake: never Substance use: never Substance use type: does not use Do You Feel Safe in your Home?: Yes Lack of Transportation: No Lack of Food: Never True Current Housing: I Have Housing Concerned About Future Housing: No Difficulty Paying Gas/Electric Bills: No Difficulty Paying for Meds: No Currently Unemployed: No Education: Associate Degree Difficulty w/ Childcare or Family Care: No Living arrangements: with family Occupation/Education: occupation Gender identity (if verbalized by the patient): Female Sexual Orientation (if Verbalized by the Patient): Straight or Heterosexual Spiritual care concerns: No Comments At the time of my signature, I reviewed and agree with the nursing past medical, surgical, social, and family history. There is no relevant family history pertinent to the patient complaint. Exam Narrative: GENERAL: This is a well-nourished, well-developed adult, in no apparent distress. They are non ill-appearing, nontoxic appearing. HEAD: normocephalic, atraumatic. EYES: Sclera clear/white. Vision is grossly intact. Conjunctiva normal bilaterally. Extraocular movements intact. EARS: External ears normal, auditory canals clear and without drainage, TMs without erythema or perforation. Hearing grossly intact. NOSE: External nose normal with no obvious nasal discharge, nasal turbinates erythematous with exudate present, no rhinorrhea. Maxillary sinus tenderness to palpation. THROAT: Mucous membranes moist, posterior pharynx erythematous without exudate. Uvula is midline. Postnasal drip present. NECK: Neck supple, non-tender without lymphadenopathy, masses or thyromegaly. CARDIOVASCULAR: Regular rate and rhythm without murmurs, gallops, or rubs. RESPIRATORY: Clear to auscultation. Breath sounds equal bilaterally. No wheezes, rales, or rhonchi. SKIN: warm, Dry, intact with no suspicious lesions or rash, good texture and turgor. NEURO: awake, alert, and oriented to person, place and time. There were no obvious focal neurologic abnormalities. EXTREMITIES: No joint tenderness, effusion, or edema noted. BACK: Nontender without deformity. Course Course Emergency Course: Portions of this record may have been created with voice recognition software Level of Care: Express Care Visit Vital Signs Vital signs: Vital Signs Temperature 97.8 F 04/29/25 19:39 Pulse Rate 79 04/29/25 19:39 Respiratory Rate 16 04/29/25 19:39 Blood Pressure 110/60 04/29/25 19:39 Pulse Oximetry 100 04/29/25 19:39 Temperature 97.8 F 04/29/25 19:39 Pulse Rate 79 04/29/25 19:39 Respiratory Rate 16 04/29/25 19:39 Blood Pressure 110/60 04/29/25 19:39 Pulse Oximetry 100 04/29/25 19:39 MDM - URI/Sore Throat MDM Narrative Medical decision making narrative: Given length with symptoms patient likely has a bacterial sinusitis. Will treat with Augmentin. Patient requesting fluconazole for possible yeast infection that she gets with antibiotics. Prescription sent. Advised patient to will only start treatment if symptoms start. Discussed physical exam findings. Advised supportive measures and signs/symptoms to go to the ER. Pt is appropriate for outpt treatment and f/u. Differential Diagnosis Differential diagnosis: Likely upper respiratory infection, sinusitis, viral infection and pharyngitis Discharge Plan Discharge Clinical Impression: Sinusitis Patient Disposition: Home Condition: Stable Instructions: Antibiotic Form, Sinusitis (ED) Additional Instructions: Take the antibiotics as directed and complete the course even if you start to feel better. You may use a Neti pot saline rinse 3 times a day with lukewarm distilled water Continue to take Tylenol or Motrin for pain. Use a humidifier or vaporizer at night. Drink plenty of water. 8-10 glasses per day. Use flonase 2 times per day for 5 days then as needed Take mucinex 2 times per day and be sure to take with 8oz of water. Follow up with Primary provider in 3-5 days Please go to the ER if he develops any difficulty breathing, worsening symptoms, or any other concerns Take fluconazole as directed. Only take it if you develops symptoms of yeast infection. Patient Language: Nigerien Prescriptions: New fluconazole 150 mg tablet 150 mg PO Q72H Qty: 2 0RF Rx Instructions: May repeat dose in 72 hours if symptoms persist. amoxicillin-pot clavulanate 875-125 mg tablet 1 tablet PO Q12H 7 Days Qty: 14 0RF No Action norethindrone (contraceptive) 0.35 mg tablet 0.35 mg PO DAILY Airsupra 90-80 mcg/actuation HFA aerosol inhaler 2 inh inhalation ONCE Qty: 32.1 0RF Rx Instructions: as a single dose; may repeat up to 6 doses per day (12 inhalations) benzonatate 100 mg capsule 100 mg PO TID PRN (Reason: cough) Qty: 30 0RF ondansetron 4 mg tablet,disintegrating 4 mg PO Q8H PRN (Reason: nausea and vomiting) Qty: 20 0RF cholecalciferol (vitamin D3) 250 mcg (10,000 unit) tablet 250 mcg PO DAILY All Day Allergy (cetirizine) 10 mg capsule 10 mg PO DAILY PRN levothyroxine 125 mcg tablet 125 mcg PO .QOD Qty: 45 3RF Rx Instructions: Alternate with 112mcg levothyroxine 112 mcg tablet 112 mcg PO .QOD Qty: 45 3RF Rx Instructions: Alternate with 125 mcg rosuvastatin 10 mg tablet 10 mg PO QHS Qty: 90 0RF lansoprazole [Prevacid] 15 mg capsule,delayed release(DR/EC) 30 mg PO DAILY clotrimazole-betamethasone 1-0.05 % cream 1 applic topical BID Qty: 45 1RF montelukast 10 mg tablet 10 mg PO QHS Qty: 90 0RF metoprolol succinate 25 mg tablet extended release 24 hr 25 mg PO DAILY Qty: 90 2RF tirzepatide 10 mg/0.5 mL pen injector 10 mg subcut WEEKLY Qty: 2 0RF Follow-up/Referrals: Sayda Small PA-C [Primary Care Provider, [facility]] Time of Disposition: 20:15
== END 2025-04-29 20:30 | disposition home or self-care (01) ==
PROVIDERS: PCP Physician Assistant Medical
DX: J32.9 Chronic sinusitis, unspecified (principal); K74.60 Unspecified cirrhosis of liver; E11.9 Type 2 diabetes mellitus without complications; Z79.85 Long-term (current) use of injectable non-insulin antidiabetic drugs; E78.5 Hyperlipidemia, unspecified; E03.9 Hypothyroidism, unspecified
CPT/HCPCS: 99213; G0463